=== PATIENT | male | born 1960 | race Asian ===

== ENCOUNTER 2017-09-12 17:16 | Inpatient (IN) | payer MEDICAID, OTHER ==
[~2017-09-12] VITALS: Ht 177.8 cm; Wt 91.2 kg
[2017-09-12] MEDS ORDERED: SODIUM CHLORIDE 0.9% 1,000 ML IV ONE (17:25)
[2017-09-12] MEDS ORDERED: ONDANSETRON 2MG/ML, 2ML IVPush ONE (17:30)
[2017-09-12] MEDS ORDERED: ONDANSETRON 2MG/ML, 2ML ONE (18:10)
[2017-09-12 18:11] LABS: HEMATOCRIT 28.9 % (39.2-51.8); HEMOGLOBIN 9.3 g/dL (13.7-18.0); WHITE BLOOD COUNT 17.9 x10^3/uL (3.4-10)
[2017-09-12 18:23] LABS: BLOOD UREA NITROGEN 36 mg/dL (7-18)
[2017-09-12 18:28] LABS: IS PT STATUS REG ER OR PRE ER? YES
[2017-09-12 18:28] LABS: RAPID INFLUENZA A Negative (Negative); RAPID INFLUENZA B Negative (Negative)
[2017-09-12] MEDS ORDERED: CALC0.25 PO (18:43)
[2017-09-12] MEDS ORDERED: ISOS30TA8 PO (18:43)
[2017-09-12] MEDS ORDERED: ASPI-496 PO (18:43)
[2017-09-12] MEDS ORDERED: FURO-92 PO (18:43)
[2017-09-12] MEDS ORDERED: CARV6.252 PO (18:43)
[2017-09-12] MEDS ORDERED: ATOR40TA PO (18:43)
[2017-09-12] MEDS ORDERED: NITR0.4T28 SL (18:43)
[2017-09-12] MEDS ORDERED: HYDR-3342 PO (18:43)
[2017-09-12] MEDS ORDERED: GABA300C10 PO (18:43)
[2017-09-12] MEDS ORDERED: HUM100VI6 SQ (18:43)
[2017-09-12] MEDS ORDERED: SODIUM CHLORIDE FLUSH 10ML SYR IVF PRN (20:00)
[2017-09-12] MEDS ORDERED: NITROGLYCERIN 0.4 MG BOTTLE (25 TABS) SL PRN (20:30)
[2017-09-12] MEDS ORDERED: hydrALAzine 20 MG/ML, 1ML IVPush PRN (20:30)
[2017-09-12] MEDS ORDERED: FUROSEMIDE 20 MG/2 ML IV SCH (20:30)
[2017-09-12] MEDS ORDERED: ONDANSETRON 2MG/ML, 2ML IVPush PRN (20:30)
[2017-09-12] MEDS ORDERED: DOCUSATE 100 MG CAPSULE PO PRN (20:30)
[2017-09-12] MEDS ORDERED: AZITHROMYCIN 500 MG in SODIUM CHLORIDE 0.9% 250 ML IV SCH (20:30)
[2017-09-12] MEDS ORDERED: HEPARIN 5,000 UNITS/ML, 1ML SQ SCH (20:30)
[2017-09-12] MEDS ORDERED: GUAIFENESIN/DM 200-20MG, 10ML UDC PO PRN (20:30)
[2017-09-12] MEDS ORDERED: CEFTRIAXONE PMX 1GM/50ML 50 ML IV SCH (21:30)
[2017-09-12] MEDS ORDERED: PHARMACY MAY ADJ FOR RENAL FX MC PRN (21:30)
[2017-09-12 22:30] VITALS: BP 120/75
[2017-09-12] MEDS: ATORVASTATIN 40 MG TABLET PO SCH (22:41)
[2017-09-12] MEDS: GABAPENTIN 300 MG CAPSULE PO SCH (22:41)
[2017-09-12] MEDS: CARVEDILOL 6.25 MG TABLET PO SCH (22:41)
[2017-09-13] VITALS (8 sets, daily range): BP systolic 98–157; BP diastolic 58–92
[2017-09-13 00:53] LABS: IS PT STATUS REG ER OR PRE ER? NO
[2017-09-13 06:03] LABS: HEMATOCRIT 24.5 % (39.2-51.8); WHITE BLOOD COUNT 14.9 x10^3/uL (3.4-10)
[2017-09-13 06:13] LABS: BLOOD UREA NITROGEN 35 mg/dL (7-18)
[2017-09-13 06:31] LABS: IS PT STATUS REG ER OR PRE ER? NO
[2017-09-13] MEDS: CALCITRIOL 0.25 MCG CAPSULE PO SCH (09:24)
[2017-09-13] MEDS: CARVEDILOL 6.25 MG TABLET PO SCH ×2 (09:24→20:34)
[2017-09-13] MEDS: GABAPENTIN 300 MG CAPSULE PO SCH ×3 (09:24→20:34)
[2017-09-13] MEDS: ISOSORBIDE MONONITRATE ER 30 MG TABLET PO SCH (09:25)
[2017-09-13] MEDS: ASPIRIN 81 MG TABLET EC PO SCH (09:26)
[2017-09-13] MEDS: INSULIN ASPART 70/30 100U/ML, PEN SQ-INSULIN SCH (10:22)
[2017-09-13] MEDS: ACETAMINOPHEN 325 MG TABLET PO PRN (13:53)
[2017-09-13] MEDS: ATORVASTATIN 40 MG TABLET PO SCH (20:34)
[2017-09-14 01:29] VITALS: BP 118/66
[2017-09-14 04:21] LABS: HEMOGLOBIN 8.2 g/dL (13.7-18.0); WHITE BLOOD COUNT 14.8 x10^3/uL (3.4-10)
[2017-09-14 07:29] VITALS: BP 111/67
[2017-09-14] MEDS: CARVEDILOL 6.25 MG TABLET PO SCH ×2 (08:32→21:16)
[2017-09-14] MEDS: CALCITRIOL 0.25 MCG CAPSULE PO SCH (08:32)
[2017-09-14] MEDS: ISOSORBIDE MONONITRATE ER 30 MG TABLET PO SCH (08:32)
[2017-09-14] MEDS: ASPIRIN 81 MG TABLET EC PO SCH (08:32)
[2017-09-14] MEDS: GABAPENTIN 300 MG CAPSULE PO SCH ×3 (08:32→21:16)
[2017-09-14] MEDS: INSULIN ASPART 70/30 100U/ML, PEN SQ-INSULIN SCH (08:33)
[2017-09-14] MEDS: ACETAMINOPHEN 325 MG TABLET PO PRN ×2 (09:27→22:37)
[2017-09-14] MEDS: INSULIN ASPART 100 UNITS/ML, PEN SQ-INSULIN SCH ×3 (11:53→21:21)
[2017-09-14 13:02] VITALS: BP 117/68
[2017-09-14] MEDS ORDERED: COLCHICINE 0.6 MG TABLET PO ONE (17:30)
[2017-09-14 19:06] VITALS: BP 130/77
[2017-09-14] MEDS: ATORVASTATIN 40 MG TABLET PO SCH (21:16)
[2017-09-14] MEDS: COLCHICINE 0.6 MG TABLET PO PRN (21:16)
[2017-09-14 21:25] VITALS: BP 135/78
[2017-09-14] MEDS ORDERED: PHARMACOKINETIC MONITORING MC PRN (22:00)
[2017-09-14] MEDS ORDERED: VANCOMYCIN PER PHARMACY MC PRN (22:00)
[2017-09-14] MEDS ORDERED: PIPERACILLIN/TAZO/PMX 3.375GM 50 ML IV SCH (22:00)
[2017-09-14] MEDS ORDERED: PHARMACOKINETIC CONSULTATION MC ONE (22:00)
[2017-09-14] MEDS ORDERED: VANCOMYCIN 1,800 MG in SODIUM CHLORIDE 0.9% 250 ML IV ONE (22:30)
[2017-09-14] MEDS: PIPERACILLIN/TAZO 3.375 GM in SODIUM CHLORIDE 0.9% 50 ML IV SCH (23:15)
[2017-09-15 02:22] VITALS: BP 100/57
[2017-09-15] MEDS: PIPERACILLIN/TAZO 3.375 GM in SODIUM CHLORIDE 0.9% 50 ML IV SCH (05:30)
[2017-09-15 05:40] LABS: HEMATOCRIT 23.1 % (39.2-51.8); HEMOGLOBIN 7.7 g/dL (13.7-18.0); WHITE BLOOD COUNT 14.2 x10^3/uL (3.4-10)
[2017-09-15 06:19] LABS: BLOOD UREA NITROGEN 36 mg/dL (7-18)
[2017-09-15 07:29] VITALS: BP 119/84
[2017-09-15] MEDS: INSULIN ASPART 100 UNITS/ML, PEN SQ-INSULIN SCH ×4 (08:44→21:00)
[2017-09-15] MEDS: GABAPENTIN 300 MG CAPSULE PO SCH ×3 (08:45→22:08)
[2017-09-15] MEDS: COLCHICINE 0.6 MG TABLET PO PRN (08:45)
[2017-09-15] MEDS: CALCITRIOL 0.25 MCG CAPSULE PO SCH (08:45)
[2017-09-15] MEDS: ASPIRIN 81 MG TABLET EC PO SCH (08:45)
[2017-09-15] MEDS: INSULIN ASPART 70/30 100U/ML, PEN SQ-INSULIN SCH (08:45)
[2017-09-15] MEDS: ISOSORBIDE MONONITRATE ER 30 MG TABLET PO SCH (08:45)
[2017-09-15] MEDS: CARVEDILOL 6.25 MG TABLET PO SCH ×2 (08:46→22:09)
[2017-09-15] MEDS: ACETAMINOPHEN 325 MG TABLET PO PRN (08:53)
[2017-09-15] MEDS ORDERED: morphine SULFATE 10 MG/ML, 1ML IVPush PRN (10:30)
[2017-09-15] MEDS ORDERED: PHENYLEPHRINE 10 MG/ML ONE (10:33)
[2017-09-15] MEDS ORDERED: FUROSEMIDE 40 MG/4 ML IV ONE (12:30)
[2017-09-15 13:00] VITALS: BP 109/69
[2017-09-15 13:38] VITALS: BP 118/69
[2017-09-15 15:07] LABS: OCCBLD OBC PASS
[2017-09-15] MEDS ORDERED: LIDOCAINE 1%, 20ML ONE (15:59)
[2017-09-15] MEDS ORDERED: LEVOFLOXACIN/PMX 500MG/100ML 100 ML IV SCH (17:00)
[2017-09-15 18:28] VITALS: BP 123/75
[2017-09-15] MEDS ORDERED: MIDAZOLAM 1 MG/ML, 2ML ONE (19:53)
[2017-09-15] MEDS ORDERED: FENTANYL PF 100 MCG/2ML ONE (19:53)
[2017-09-15] MEDS ORDERED: PROPOFOL 10 MG/ML, 20ML ONE ×2 (19:56→19:57)
[2017-09-15] MEDS ORDERED: LIDOCAINE/PF 1%, 30ML ONE (19:57)
[2017-09-15] MEDS ORDERED: SUCCINYLCHOLINE 20 MG/ML, 10ML ONE (19:57)
[2017-09-15] MEDS ORDERED: EPINEPHRINE 1 MG/ML, 1ML ONE (19:58)
[2017-09-15 20:07] LABS: CELLS COUNTED 725; DILUTION 2; WBC SQUARES COUNTED 1
[2017-09-15] MEDS ORDERED: DEXAMETHASONE 4 MG/ML, 1ML ONE (20:21)
[2017-09-15] MEDS ORDERED: ONDANSETRON 2MG/ML, 2ML ONE (20:21)
[2017-09-15] MEDS ORDERED: NEOSPORIN OINT, 15GM ONE (20:22)
[2017-09-15] MEDS ORDERED: OXYcodone 5 MG/5 ML ORAL.SOL UDC PO PRN (20:30)
[2017-09-15] MEDS ORDERED: PROMETHAZINE 25 MG/ML, 1ML IV PRN (20:30)
[2017-09-15] MEDS ORDERED: MEPERIDINE/PF 25MG/0.5ML IVPush PRN (20:30)
[2017-09-15] MEDS ORDERED: LABETALOL 5MG/ML, 20ML IV PRN (20:30)
[2017-09-15] MEDS ORDERED: ONDANSETRON 2MG/ML, 2ML IVPush PRN (20:30)
[2017-09-15] MEDS ORDERED: FENTANYL PF 100 MCG/2ML IV PRN (20:30)
[2017-09-15] MEDS ORDERED: hydrALAzine 20 MG/ML, 1ML IV PRN (20:30)
[2017-09-15] MEDS ORDERED: HYDROmorphone 1 MG/ML, 1ML IV PRN (20:30)
[2017-09-15] MEDS: ATORVASTATIN 40 MG TABLET PO SCH (22:08)
[2017-09-16 03:31] VITALS: BP 127/77
[2017-09-16 05:24] LABS: HEMATOCRIT 27.2 % (39.2-51.8); HEMOGLOBIN 8.8 g/dL (13.7-18.0); WHITE BLOOD COUNT 15.5 x10^3/uL (3.4-10)
[2017-09-16 05:39] LABS: ASPARTATE AMINO TRANSFERASE 21 U/L (15-37); BLOOD UREA NITROGEN 40 mg/dL (7-18); FERRITIN 1169.7 ng/mL (26-388); TOTAL IRON BINDING CAPACITY 131 mcg/dL (250-450)
[2017-09-16] MEDS ORDERED: SODIUM POLYSTYRENE SULFONATE ORAL SUSP PO ONE (06:00)
[2017-09-16] MEDS ORDERED: FUROSEMIDE 40 MG/4 ML IV ONE (07:30)
[2017-09-16 07:45] VITALS: BP 129/78
[2017-09-16] MEDS: INSULIN ASPART 100 UNITS/ML, PEN SQ-INSULIN SCH ×4 (08:22→20:38)
[2017-09-16] MEDS: INSULIN ASPART 70/30 100U/ML, PEN SQ-INSULIN SCH ×2 (08:22→20:39)
[2017-09-16] MEDS: GABAPENTIN 300 MG CAPSULE PO SCH ×3 (08:24→20:39)
[2017-09-16] MEDS: CALCITRIOL 0.25 MCG CAPSULE PO SCH (08:24)
[2017-09-16] MEDS: ASPIRIN 81 MG TABLET EC PO SCH (08:24)
[2017-09-16] MEDS: CARVEDILOL 6.25 MG TABLET PO SCH ×2 (08:24→20:39)
[2017-09-16] MEDS: morphine SULFATE 10 MG/ML, 1ML IVPush PRN (13:00)
[2017-09-16 14:58] VITALS: BP 124/73
[2017-09-16 19:39] VITALS: BP 130/75
[2017-09-16] MEDS: ATORVASTATIN 40 MG TABLET PO SCH (20:39)
[2017-09-17] MEDS: morphine SULFATE 10 MG/ML, 1ML IVPush PRN (00:17)
[2017-09-17 02:00] VITALS: BP 112/69
[2017-09-17 05:28] LABS: HEMATOCRIT 25.2 % (39.2-51.8); HEMOGLOBIN 8.4 g/dL (13.7-18.0); WHITE BLOOD COUNT 15.3 x10^3/uL (3.4-10)
[2017-09-17 05:40] LABS: BLOOD UREA NITROGEN 47 mg/dL (7-18)
[2017-09-17 05:44] LABS: ASPARTATE AMINO TRANSFERASE 16 U/L (15-37)
[2017-09-17 07:40] VITALS: BP 131/78
[2017-09-17] MEDS: GABAPENTIN 300 MG CAPSULE PO SCH ×3 (08:54→20:23)
[2017-09-17] MEDS: CALCITRIOL 0.25 MCG CAPSULE PO SCH (08:55)
[2017-09-17] MEDS: ASPIRIN 81 MG TABLET EC PO SCH (08:55)
[2017-09-17] MEDS: CARVEDILOL 6.25 MG TABLET PO SCH ×2 (08:55→20:23)
[2017-09-17] MEDS: INSULIN ASPART 100 UNITS/ML, PEN SQ-INSULIN SCH ×4 (08:56→20:24)
[2017-09-17] MEDS: INSULIN ASPART 70/30 100U/ML, PEN SQ-INSULIN SCH ×2 (09:10→20:24)
[2017-09-17] MEDS: CHOLECALCIFEROL 1,000 UNIT TABLET PO SCH (11:43)
[2017-09-17 12:40] VITALS: BP 123/72
[2017-09-17 19:16] VITALS: BP 145/88
[2017-09-17] MEDS: LEVOFLOXACIN/PMX 750MG/150ML 150 ML IV SCH (20:23)
[2017-09-17] MEDS: ATORVASTATIN 40 MG TABLET PO SCH (20:23)
[2017-09-18 02:54] VITALS: BP 144/83
[2017-09-18 05:50] LABS: BLOOD UREA NITROGEN 47 mg/dL (7-18)
[2017-09-18 05:55] LABS: ASPARTATE AMINO TRANSFERASE 18 U/L (15-37)
[2017-09-18 07:29] VITALS: BP 132/71
[2017-09-18] MEDS: LACTOBACILLUS 1GM/ PACKET PO SCH ×4 (08:35→20:37)
[2017-09-18] MEDS: INSULIN ASPART 100 UNITS/ML, PEN SQ-INSULIN SCH ×4 (08:36→20:47)
[2017-09-18] MEDS: GABAPENTIN 300 MG CAPSULE PO SCH ×3 (08:36→20:35)
[2017-09-18] MEDS: CALCITRIOL 0.25 MCG CAPSULE PO SCH (08:36)
[2017-09-18] MEDS: ASPIRIN 81 MG TABLET EC PO SCH (08:36)
[2017-09-18] MEDS: CHOLECALCIFEROL 1,000 UNIT TABLET PO SCH (08:36)
[2017-09-18] MEDS: CARVEDILOL 6.25 MG TABLET PO SCH ×2 (08:36→20:35)
[2017-09-18] MEDS: INSULIN ASPART 70/30 100U/ML, PEN SQ-INSULIN SCH ×2 (08:37→20:48)
[2017-09-18] MEDS: ACETAMINOPHEN 325 MG TABLET PO PRN (10:39)
[2017-09-18 12:55] VITALS: BP 137/72
[2017-09-18] MEDS: ATORVASTATIN 40 MG TABLET PO SCH (20:35)
[2017-09-18 20:57] VITALS: BP 148/92
[2017-09-19 03:38] VITALS: BP 170/98
[2017-09-19] MEDS: ACETAMINOPHEN 325 MG TABLET PO PRN ×2 (04:03→12:21)
[2017-09-19] MEDS: LACTOBACILLUS 1GM/ PACKET PO SCH ×4 (05:07→21:00)
[2017-09-19 05:10] VITALS: BP 148/82
[2017-09-19 06:23] LABS: ASPARTATE AMINO TRANSFERASE 24 U/L (15-37); BLOOD UREA NITROGEN 39 mg/dL (7-18)
[2017-09-19] MEDS: INSULIN ASPART 100 UNITS/ML, PEN SQ-INSULIN SCH ×4 (07:00→22:46)
[2017-09-19] MEDS: INSULIN ASPART 70/30 100U/ML, PEN SQ-INSULIN SCH ×2 (09:00→22:46)
[2017-09-19 09:09] VITALS: BP 147/90
[2017-09-19] MEDS: CARVEDILOL 6.25 MG TABLET PO SCH ×2 (10:40→22:21)
[2017-09-19] MEDS: GABAPENTIN 300 MG CAPSULE PO SCH ×3 (10:41→22:21)
[2017-09-19] MEDS: CALCITRIOL 0.25 MCG CAPSULE PO SCH (10:41)
[2017-09-19] MEDS: ASPIRIN 81 MG TABLET EC PO SCH (10:41)
[2017-09-19] MEDS: CHOLECALCIFEROL 1,000 UNIT TABLET PO SCH (10:42)
[2017-09-19] MEDS: TORSEMIDE 20 MG TABLET PO SCH (10:42)
[2017-09-19 14:29] VITALS: BP 124/76
[2017-09-19 20:07] VITALS: BP 151/88
[2017-09-19] MEDS: LEVOFLOXACIN/PMX 750MG/150ML 150 ML IV SCH (22:21)
[2017-09-19] MEDS: ATORVASTATIN 40 MG TABLET PO SCH (22:22)
[2017-09-20 01:49] VITALS: BP 126/79
[2017-09-20 05:10] LABS: HEMATOCRIT 25.8 % (39.2-51.8); HEMOGLOBIN 8.5 g/dL (13.7-18.0); WHITE BLOOD COUNT 16.2 x10^3/uL (3.4-10)
[2017-09-20 05:18] LABS: BLOOD UREA NITROGEN 41 mg/dL (7-18)
[2017-09-20 05:23] LABS: ASPARTATE AMINO TRANSFERASE 16 U/L (15-37)
[2017-09-20] MEDS: LACTOBACILLUS 1GM/ PACKET PO SCH ×2 (06:00→10:45)
[2017-09-20] MEDS: INSULIN ASPART 100 UNITS/ML, PEN SQ-INSULIN SCH ×4 (07:00→21:00)
[2017-09-20 07:45] VITALS: BP 123/75
[2017-09-20] MEDS: INSULIN ASPART 70/30 100U/ML, PEN SQ-INSULIN SCH ×2 (08:44→21:04)
[2017-09-20] MEDS: ACETAMINOPHEN 325 MG TABLET PO PRN (08:44)
[2017-09-20] MEDS: TORSEMIDE 20 MG TABLET PO SCH (08:45)
[2017-09-20] MEDS: CARVEDILOL 6.25 MG TABLET PO SCH ×2 (08:45→21:05)
[2017-09-20] MEDS: CHOLECALCIFEROL 1,000 UNIT TABLET PO SCH (08:46)
[2017-09-20] MEDS: GABAPENTIN 300 MG CAPSULE PO SCH ×3 (08:46→21:05)
[2017-09-20] MEDS: CALCITRIOL 0.25 MCG CAPSULE PO SCH (08:46)
[2017-09-20] MEDS: ASPIRIN 81 MG TABLET EC PO SCH (08:46)
[2017-09-20] MEDS: FEBUXOSTAT 40 MG TABLET PO SCH (10:45)
[2017-09-20 14:11] VITALS: BP 120/77
[2017-09-20 21:01] VITALS: BP 142/88
[2017-09-20] MEDS: ATORVASTATIN 40 MG TABLET PO SCH (21:05)
[2017-09-21 01:01] VITALS: BP 137/82
[2017-09-21] MEDS: ACETAMINOPHEN 325 MG TABLET PO PRN (01:04)
[2017-09-21 05:16] LABS: HEMOGLOBIN 8.6 g/dL (13.7-18.0)
[2017-09-21 05:37] LABS: ASPARTATE AMINO TRANSFERASE 25 U/L (15-37); BLOOD UREA NITROGEN 33 mg/dL (7-18)
[2017-09-21] MEDS ORDERED: MAGNESIUM SULFATE PMX 2GM/50ML 50 ML IV ONE (07:30)
[2017-09-21 07:39] VITALS: BP 154/90
[2017-09-21] MEDS: TORSEMIDE 20 MG TABLET PO SCH (09:09)
[2017-09-21] MEDS: FEBUXOSTAT 40 MG TABLET PO SCH (09:10)
[2017-09-21] MEDS: ASPIRIN 81 MG TABLET EC PO SCH (09:10)
[2017-09-21] MEDS: GABAPENTIN 300 MG CAPSULE PO SCH ×3 (09:10→20:31)
[2017-09-21] MEDS: CHOLECALCIFEROL 1,000 UNIT TABLET PO SCH (09:10)
[2017-09-21] MEDS: CALCITRIOL 0.25 MCG CAPSULE PO SCH (09:10)
[2017-09-21] MEDS: CARVEDILOL 6.25 MG TABLET PO SCH ×2 (09:10→20:31)
[2017-09-21] MEDS: INSULIN ASPART 70/30 100U/ML, PEN SQ-INSULIN SCH ×2 (09:11→20:32)
[2017-09-21] MEDS: INSULIN ASPART 100 UNITS/ML, PEN SQ-INSULIN SCH ×4 (09:11→20:32)
[2017-09-21 13:54] VITALS: BP 124/74
[2017-09-21 15:10] VITALS: BP 125/74
[2017-09-21 18:31] VITALS: BP 143/82
[2017-09-21] MEDS: ATORVASTATIN 40 MG TABLET PO SCH (20:31)
[2017-09-21] MEDS: LEVOFLOXACIN/PMX 750MG/150ML 150 ML IV SCH (21:56)
[2017-09-22 03:03] VITALS: BP 144/81
[2017-09-22 06:04] LABS: BLOOD UREA NITROGEN 32 mg/dL (7-18)
[2017-09-22 06:40] VITALS: BP 132/78
[2017-09-22] MEDS: INSULIN ASPART 100 UNITS/ML, PEN SQ-INSULIN SCH ×4 (07:29→20:17)
[2017-09-22] MEDS: ASPIRIN 81 MG TABLET EC PO SCH (09:29)
[2017-09-22] MEDS: CHOLECALCIFEROL 1,000 UNIT TABLET PO SCH (09:29)
[2017-09-22] MEDS: CALCITRIOL 0.25 MCG CAPSULE PO SCH (09:30)
[2017-09-22] MEDS: GABAPENTIN 300 MG CAPSULE PO SCH ×3 (09:30→20:18)
[2017-09-22] MEDS: CARVEDILOL 6.25 MG TABLET PO SCH ×2 (09:31→20:18)
[2017-09-22] MEDS: FEBUXOSTAT 40 MG TABLET PO SCH (09:31)
[2017-09-22] MEDS: TORSEMIDE 20 MG TABLET PO SCH (09:32)
[2017-09-22] MEDS: INSULIN ASPART 70/30 100U/ML, PEN SQ-INSULIN SCH ×2 (09:36→20:18)
[2017-09-22 12:56] VITALS: BP 127/71
[2017-09-22 20:16] VITALS: BP 130/79
[2017-09-22] MEDS: ATORVASTATIN 40 MG TABLET PO SCH (20:18)
[2017-09-23 02:52] VITALS: BP 121/72
[2017-09-23] MEDS ORDERED: FEBU40TA PO (06:37)
[2017-09-23] MEDS ORDERED: TORS20TA PO (06:37)
[2017-09-23 06:49] VITALS: BP 122/77
[2017-09-23] MEDS: INSULIN ASPART 100 UNITS/ML, PEN SQ-INSULIN SCH ×2 (07:00→11:00)
[2017-09-23 07:54] LABS: BLOOD UREA NITROGEN 31 mg/dL (7-18)
[2017-09-23] MEDS: FEBUXOSTAT 40 MG TABLET PO SCH (08:58)
[2017-09-23] MEDS: ASPIRIN 81 MG TABLET EC PO SCH (08:59)
[2017-09-23] MEDS: CHOLECALCIFEROL 1,000 UNIT TABLET PO SCH (08:59)
[2017-09-23] MEDS: GABAPENTIN 300 MG CAPSULE PO SCH (08:59)
[2017-09-23] MEDS: TORSEMIDE 20 MG TABLET PO SCH (08:59)
[2017-09-23] MEDS: CALCITRIOL 0.25 MCG CAPSULE PO SCH (08:59)
[2017-09-23] MEDS: INSULIN ASPART 70/30 100U/ML, PEN SQ-INSULIN SCH (09:00)
[2017-09-23] MEDS: CARVEDILOL 6.25 MG TABLET PO SCH (09:00)
[2017-09-23] MEDS: ACETAMINOPHEN 325 MG TABLET PO PRN (09:07)
[2017-09-23] MEDS ORDERED: LIDOCAINE 1%, 20ML ONE ×2 (11:38→14:05)
[2017-09-23 13:23] VITALS: BP 109/67
[2017-09-23] MEDS ORDERED: ERGOCALCIFEROL 50,000 UNIT CAPSULE PO SCH (14:30)
[2017-09-23 14:42] LABS: PTH INTACT INTERPRETATION ** Comment **
[2017-09-23 15:09] LABS: PARATHYROID HORMONE INTACT 64.8 pg/mL (14-72)
[2017-09-23 15:16] LABS: CYTOLOGY BODY FLUID RECD INTO PATHOLOGY; CYTOLOGY BODY FLUID SOURCE PLEURAL FLUID
== END 2017-09-23 16:00 | disposition home or self-care (01) | DRG 570 ==
LOC: ED 18:42 → EDIP 19:40 → 5SO 20:51 → 4NOR 09-21 14:31 → DCLOUNGE 09-23 15:50
PROVIDERS: ADMIT Family Medicine; ATTEND Hospitalist
PROC: 0JB00ZZ Excision of Scalp Subcutaneous Tissue and Fascia, Open Approach (ICD-10-PCS; 2017-09-15)
PROC: 0S9C3ZZ Drainage of Right Knee Joint, Percutaneous Approach (ICD-10-PCS; 2017-09-15)
PROC: BW1C1ZZ Fluoroscopy of Lower Extremity using Low Osmolar Contrast (ICD-10-PCS; principal; 2017-09-15 18:00)
PROC: 0W9B30Z Drainage of Left Pleural Cavity with Drainage Device, Percutaneous Approach (ICD-10-PCS; 2017-09-23)
DX: L02.811 Cutaneous abscess of head [any part, except face] (principal); E43 Unspecified severe protein-calorie malnutrition; I50.43 Acute on chronic combined systolic (congestive) and diastolic (congestive) heart failure; J18.9 Pneumonia, unspecified organism; E11.21 Type 2 diabetes mellitus with diabetic nephropathy; E11.40 Type 2 diabetes mellitus with diabetic neuropathy, unspecified; I13.0 Hypertensive heart and chronic kidney disease with heart failure and stage 1 through stage 4 chronic kidney disease, or unspecified chronic kidney disease; N17.9 Acute kidney failure, unspecified; N18.4 Chronic kidney disease, stage 4 (severe); E86.9 Volume depletion, unspecified; M10.9 Gout, unspecified; D63.8 Anemia in other chronic diseases classified elsewhere; E11.22 Type 2 diabetes mellitus with diabetic chronic kidney disease; E11.65 Type 2 diabetes mellitus with hyperglycemia; Z68.28 Body mass index [BMI] 28.0-28.9, adult; E87.5 Hyperkalemia; I25.10 Atherosclerotic heart disease of native coronary artery without angina pectoris; I49.3 Ventricular premature depolarization; J20.9 Acute bronchitis, unspecified; J45.909 Unspecified asthma, uncomplicated; L02.92 Furuncle, unspecified; L72.3 Sebaceous cyst; Z79.4 Long term (current) use of insulin; Z82.49 Family history of ischemic heart disease and other diseases of the circulatory system; I25.2 Old myocardial infarction; Z88.8 Allergy status to other drugs, medicaments and biological substances; Z95.5 Presence of coronary angioplasty implant and graft; Z83.3 Family history of diabetes mellitus; Z79.899 Other long term (current) drug therapy
CPT/HCPCS: 32555; 36415; 71010; 71020; 71250; 74230; 76770; 77002; 80048; 80053; 80069; 80202; 81001; 82040; 82272; 82306; 82310; 82728; 82945; 82962; 83540; 83550; 83605; 83615; 83735; 83880; 83970; 84100; 84145; 84155; 84157; 84484; 84550; 85025; 85610; 85651; 85730; 86140; 87040; 87070; 87205; 87324; 87400; 88112; 88305; 88307; 89051; 89060; 93005; 93306; 96361; 96374; J0171; J0456; J0696; J1100; J1644; J1815; J1940; J1956; J2250; J2405; J2543; J2704; J3010; J3370; J3490; J0330; J2270; J2370; J3475; J7030; J7050

== ENCOUNTER 2017-10-08 07:20 | Inpatient (IN) | payer MEDICAID, OTHER ==
[~2017-10-08] VITALS: Ht 177.8 cm; Wt 88.8 kg
[~2017-10-08 07:20] MED LIST: ASPI-496 PO; ATOR40TA PO; CALC0.25 PO; CARV6.252 PO; FEBU40TA PO; FURO-92 PO; GABA300C10 PO; HUM100VI6 SQ; HYDR-3342 PO; ISOS30TA8 PO; NITR0.4T28 SL; TORS20TA PO
[2017-10-08] MEDS ORDERED: LACTATED RINGERS 1,000 ML IV SCH (07:58)
[2017-10-08] MEDS ORDERED: LIDOCAINE 1%, 2ML SQ PRN (08:00)
[2017-10-08 08:13] VITALS: BP 150/94
[2017-10-08] MEDS ORDERED: SODIUM CHLORIDE 0.9% 1,000 ML IV SCH (08:24)
[2017-10-08] MEDS ORDERED: INSU100V13 SQ-INSULIN (08:26)
[2017-10-08 08:34] LABS: ALBUMIN 1.8 g/dL (3.4-5.0); ANION GAP 8 mmol/L (5-15); CALCIUM 8.4 mg/dL (8.5-10.1); CHLORIDE 108 mmol/L (98-107)
[2017-10-08 08:37] LABS: ALANINE AMINOTRANSFERASE 28 U/L (12-78); ALKALINE PHOSPHATASE 167 U/L (45-117); BILIRUBIN,TOTAL 1.2 mg/dL (0.2-1.0); CREATININE 2.85 mg/dL (0.7-1.3)
[2017-10-08] MEDS ORDERED: KETAMINE 10 MG/ML, 20ML ONE (08:41)
[2017-10-08 08:49] LABS: BASOPHILS # (AUTO) 0.09 x10^3/uL (0-0.1); BASOPHILS % (AUTO) 0 % (0-1); EOSINOPHILS # (AUTO) 0.21 x10^3/uL (0-0.4); EOSINOPHILS % (AUTO) 1 % (1-7); LYMPHOCYTES # (AUTO) 1.42 x10^3/uL (1-3.4); LYMPHOCYTES % (AUTO) 7 % (22-44); MD SCAN; MEAN CORPUSCULAR HEMOGLOBIN 27.7 pg (27.5-34.5); MEAN CORPUSCULAR HGB CONC 32.6 g/dL (33.2-36.2); MEAN CORPUSCULAR VOLUME 84.8 fL (81-97); MEAN PLATELET VOLUME 8.8 fL (7.4-10.4); MONOCYTES # (AUTO) 1.49 x10^3/uL (0.2-0.8); MONOCYTES % (AUTO) 7 % (2-9); NEUTROPHILS # (AUTO) 18.18 x10^3/uL (1.8-6.8); NEUTROPHILS % (AUTO) 85 % (42-75); PLATELET COUNT 363 x10^3/uL (130-400); RED BLOOD COUNT 3.48 x10^6/uL (4.38-5.82); RED CELL DISTRIBUTION WIDTH 19.2 % (9.4-14.8)
[2017-10-08 08:58] LABS: INTERNATIONAL NORMALIZED RATIO 1.27 (0.93-1.1)
[2017-10-08] MEDS ORDERED: REMIFENTANIL 2 MG ONE (09:17)
[2017-10-08] MEDS ORDERED: FENTANYL PF 250 MCG/5ML ONE ×2 (09:20→09:38)
[2017-10-08] MEDS ORDERED: ROCURONIUM 10 MG/ML,10ML ONE (09:29)
[2017-10-08] MEDS ORDERED: GLYCOPYRROLATE 0.2MG/1ML, 5ML ONE (09:29)
[2017-10-08] MEDS ORDERED: PROPOFOL 10 MG/ML, 50ML ONE (09:29)
[2017-10-08] MEDS ORDERED: NEOSTIGMINE 1 MG/ML, 10ML ONE (09:29)
[2017-10-08] MEDS ORDERED: PHENYLEPHRINE 10 MG/ML ONE (09:29)
[2017-10-08] MEDS ORDERED: PROPOFOL 10 MG/ML, 20ML ONE (09:29)
[2017-10-08] MEDS ORDERED: FENTANYL PF 100 MCG/2ML ONE (10:34)
[2017-10-08] MEDS ORDERED: HYDROmorphone 1 MG/ML, 1ML IV PRN (12:00)
[2017-10-08] MEDS ORDERED: FENTANYL PF 100 MCG/2ML IV PRN (12:00)
[2017-10-08] MEDS ORDERED: ONDANSETRON 2MG/ML, 2ML IVPush PRN (12:00)
[2017-10-08] MEDS ORDERED: OXYcodone 5 MG/5 ML ORAL.SOL UDC PO PRN (12:00)
[2017-10-08] MEDS ORDERED: MEPERIDINE/PF 25MG/0.5ML IVPush PRN (12:00)
[2017-10-08] MEDS ORDERED: AMIODARONE 50 MG/ML, 3ML ONE (13:00)
[2017-10-08] MEDS ORDERED: LIDOCAINE 2% 100MG/5ML SYRINGE ONE (13:00)
[2017-10-08] MEDS ORDERED: ADENOSINE 6 MG/2 ML ONE (13:00)
[2017-10-08] MEDS ORDERED: SODIUM BICARB 8.4%, 50ML SYRINGE ONE (13:00)
[2017-10-08] MEDS ORDERED: EPINEPHRINE SYRINGE 0.1 MG/ML, 10ML ONE (13:00)
[2017-10-08] MEDS ORDERED: NOREPINEPHRINE 4 MG in SODIUM CHLORIDE 0.9% 246 ML IV PRN ×2 (13:30→13:33)
[2017-10-08] MEDS ORDERED: LIDOCAINE-MPF 1%, 2ML ENDO PRN (14:00)
[2017-10-08] MEDS ORDERED: FENTANYL PF 100 MCG/2ML IVPush PRN (14:00)
[2017-10-08] MEDS ORDERED: PHARMACY MAY ADJ FOR RENAL FX MC SCH (14:00)
[2017-10-08] MEDS ORDERED: INSULIN REGULAR 100 UNITS/ML, 3ML VIAL SQ-INSULIN SCH (16:00)
[2017-10-08] MEDS: D5%-0.9% NACL 1,000 ML IV SCH (16:05)
[2017-10-08] MEDS: ATORVASTATIN 40 MG TABLET PO SCH (21:48)
[2017-10-08] MEDS: INSULIN REGULAR 100 UNITS/ML, 3ML VIAL SQ-INSULIN SCH (23:42)
[2017-10-09] MEDS: D5%-0.9% NACL 1,000 ML IV SCH ×2 (03:20→17:50)
[2017-10-09] MEDS: INSULIN REGULAR 100 UNITS/ML, 3ML VIAL SQ-INSULIN SCH ×4 (03:20→23:18)
[2017-10-09 03:40] LABS: MEAN CORPUSCULAR HGB CONC 32.6 g/dL (33.2-36.2); MEAN PLATELET VOLUME 9.1 fL (7.4-10.4); PLATELET COUNT 318 x10^3/uL (130-400); RED BLOOD COUNT 3.09 x10^6/uL (4.38-5.82); RED CELL DISTRIBUTION WIDTH 18.8 % (9.4-14.8)
[2017-10-09 03:47] LABS: ANION GAP 10 mmol/L (5-15); CALCIUM 7.5 mg/dL (8.5-10.1); CHLORIDE 112 mmol/L (98-107); CREATININE 3.19 mg/dL (0.7-1.3)
[2017-10-09 04:00] VITALS: BP 119/65
[2017-10-09] MEDS: PROPOFOL 100 ML IV PRN ×3 (04:13→22:23)
[2017-10-09 04:15] LABS: BASOPHILS # (AUTO) 0.04 x10^3/uL (0-0.1); BASOPHILS % (AUTO) 0 % (0-1); EOSINOPHILS # (AUTO) 0.02 x10^3/uL (0-0.4); EOSINOPHILS % (AUTO) 0 % (1-7); LYMPHOCYTES # (AUTO) 1.27 x10^3/uL (1-3.4); LYMPHOCYTES % (AUTO) 4 % (22-44); MD SCAN; MONOCYTES # (AUTO) 1.09 x10^3/uL (0.2-0.8); MONOCYTES % (AUTO) 4 % (2-9); NEUTROPHILS # (AUTO) 28.63 x10^3/uL (1.8-6.8); NEUTROPHILS % (AUTO) 92 % (42-75)
[2017-10-09] MEDS ORDERED: INSULIN ASPART 70/30, VIAL SQ-INSULIN SCH ×2 (08:00)
[2017-10-09] MEDS ORDERED: LIDOCAINE 1%, 10ML ONE (08:06)
[2017-10-09 09:37] LABS: TROPONIN I 0.345 ng/mL (0.000-0.045)
[2017-10-09] MEDS: PANTOPRAZOLE 40 MG IV IVPush SCH (10:48)
[2017-10-09] MEDS: AMPICILLIN/SULBACTAM 3 GM in SODIUM CHLORIDE 0.9% 100 ML IV SCH ×2 (10:48→22:08)
[2017-10-09] MEDS: ASPIRIN 81 MG TABLET CHEW PO SCH (10:49)
[2017-10-09] MEDS: CALCITRIOL 0.25 MCG CAPSULE PO SCH (10:49)
[2017-10-09] MEDS: INSULIN DETEMIR 100 UNITS/ML, PEN SQ-INSULIN SCH (12:48)
[2017-10-09] MEDS: ATORVASTATIN 40 MG TABLET PO SCH (20:50)
[2017-10-10] MEDS: INSULIN DETEMIR 100 UNITS/ML, PEN SQ-INSULIN SCH ×2 (00:47→11:05)
[2017-10-10 05:00] VITALS: BP 107/64
[2017-10-10 05:09] LABS: MEAN CORPUSCULAR HEMOGLOBIN 28.1 pg (27.5-34.5); MEAN CORPUSCULAR HGB CONC 32.6 g/dL (33.2-36.2); MEAN CORPUSCULAR VOLUME 86.4 fL (81-97); MEAN PLATELET VOLUME 9.3 fL (7.4-10.4); PLATELET COUNT 327 x10^3/uL (130-400); RED BLOOD COUNT 3.32 x10^6/uL (4.38-5.82); RED CELL DISTRIBUTION WIDTH 19.8 % (9.4-14.8)
[2017-10-10 05:13] LABS: ANION GAP 9 mmol/L (5-15); CHLORIDE 113 mmol/L (98-107); CREATININE 3.29 mg/dL (0.7-1.3)
[2017-10-10] MEDS: INSULIN REGULAR 100 UNITS/ML, 3ML VIAL SQ-INSULIN SCH ×4 (05:22→21:08)
[2017-10-10 05:43] LABS: BASOPHILS # (AUTO) 0.06 x10^3/uL (0-0.1); BASOPHILS % (AUTO) 0 % (0-1); EOSINOPHILS # (AUTO) 0.25 x10^3/uL (0-0.4); EOSINOPHILS % (AUTO) 1 % (1-7); LYMPHOCYTES # (AUTO) 1.21 x10^3/uL (1-3.4); LYMPHOCYTES % (AUTO) 6 % (22-44); MD SCAN; MONOCYTES # (AUTO) 0.95 x10^3/uL (0.2-0.8); MONOCYTES % (AUTO) 4 % (2-9); NEUTROPHILS # (AUTO) 19.34 x10^3/uL (1.8-6.8); NEUTROPHILS % (AUTO) 89 % (42-75)
[2017-10-10] MEDS: PROPOFOL 100 ML IV PRN (05:50)
[2017-10-10] MEDS: D5%-0.9% NACL 1,000 ML IV SCH (08:30)
[2017-10-10] MEDS: PANTOPRAZOLE 40 MG IV IVPush SCH (10:42)
[2017-10-10] MEDS: ASPIRIN 81 MG TABLET CHEW PO SCH (10:42)
[2017-10-10] MEDS: CALCITRIOL 0.25 MCG CAPSULE PO SCH (10:42)
[2017-10-10] MEDS: AMPICILLIN/SULBACTAM 3 GM in SODIUM CHLORIDE 0.9% 100 ML IV SCH ×2 (10:43→22:48)
[2017-10-10] MEDS: D5%-0.45% NACL 1,000 ML IV SCH ×2 (10:51→21:08)
[2017-10-10] MEDS: ACETAMINOPHEN 325 MG TABLET PO PRN (15:08)
[2017-10-10 16:52] LABS: TROPONIN I 0.151 ng/mL (0.000-0.045)
[2017-10-10] MEDS: ATORVASTATIN 40 MG TABLET PO SCH (21:08)
[2017-10-11 04:36] VITALS: BP 129/71
[2017-10-11 04:53] LABS: MEAN CORPUSCULAR HEMOGLOBIN 27.6 pg (27.5-34.5); MEAN CORPUSCULAR HGB CONC 32.4 g/dL (33.2-36.2); MEAN CORPUSCULAR VOLUME 85.1 fL (81-97); MEAN PLATELET VOLUME 9.1 fL (7.4-10.4); PLATELET COUNT 283 x10^3/uL (130-400); RED BLOOD COUNT 3.03 x10^6/uL (4.38-5.82); RED CELL DISTRIBUTION WIDTH 18.9 % (9.4-14.8)
[2017-10-11 05:10] LABS: ANION GAP 7 mmol/L (5-15); CHLORIDE 113 mmol/L (98-107)
[2017-10-11 05:11] LABS: CALCIUM 7.7 mg/dL (8.5-10.1); CREATININE 3.14 mg/dL (0.7-1.3)
[2017-10-11 06:22] LABS: BASOPHILS # (AUTO) 0.06 x10^3/uL (0-0.1); BASOPHILS % (AUTO) 0 % (0-1); EOSINOPHILS % (AUTO) 2 % (1-7); LYMPHOCYTES # (AUTO) 1.07 x10^3/uL (1-3.4); LYMPHOCYTES % (AUTO) 6 % (22-44); MONOCYTES # (AUTO) 1.32 x10^3/uL (0.2-0.8); MONOCYTES % (AUTO) 7 % (2-9); NEUTROPHILS # (AUTO) 15.87 x10^3/uL (1.8-6.8); NEUTROPHILS % (AUTO) 85 % (42-75)
[2017-10-11 06:29] LABS: MD SCAN
[2017-10-11] MEDS: D5%-0.45% NACL 1,000 ML IV SCH (07:30)
[2017-10-11] MEDS: ASPIRIN 81 MG TABLET CHEW PO SCH (08:38)
[2017-10-11] MEDS: CALCITRIOL 0.25 MCG CAPSULE PO SCH (08:39)
[2017-10-11] MEDS: PANTOPRAZOLE 40 MG IV IVPush SCH (08:39)
[2017-10-11] MEDS: INSULIN REGULAR 100 UNITS/ML, 3ML VIAL SQ-INSULIN SCH ×4 (08:39→20:57)
[2017-10-11] MEDS: INSULIN DETEMIR 100 UNITS/ML, PEN SQ-INSULIN SCH ×2 (08:40→20:58)
[2017-10-11] MEDS ORDERED: HEPARIN 5,000 UNITS/ML, 1ML ONE (10:44)
[2017-10-11] MEDS: HEPARIN 5,000 UNITS/ML, 1ML SQ SCH ×2 (10:45→20:57)
[2017-10-11] MEDS: AMPICILLIN/SULBACTAM 3 GM in SODIUM CHLORIDE 0.9% 100 ML IV SCH ×2 (10:45→23:02)
[2017-10-11 20:56] VITALS: BP 135/80
[2017-10-11] MEDS: ATORVASTATIN 40 MG TABLET PO SCH (20:57)
[2017-10-12 02:58] VITALS: BP 105/68
[2017-10-12] MEDS: HEPARIN 5,000 UNITS/ML, 1ML SQ SCH ×3 (02:59→18:30)
[2017-10-12 05:36] LABS: MEAN CORPUSCULAR HEMOGLOBIN 28.2 pg (27.5-34.5); MEAN CORPUSCULAR HGB CONC 32.7 g/dL (33.2-36.2); MEAN PLATELET VOLUME 8.9 fL (7.4-10.4); PLATELET COUNT 300 x10^3/uL (130-400); RED BLOOD COUNT 3.04 x10^6/uL (4.38-5.82); RED CELL DISTRIBUTION WIDTH 18.9 % (9.4-14.8)
[2017-10-12 05:41] LABS: ANION GAP 9 mmol/L (5-15); CALCIUM 7.7 mg/dL (8.5-10.1); CHLORIDE 115 mmol/L (98-107)
[2017-10-12 06:30] LABS: MD YES
[2017-10-12 06:32] LABS: BAND#(MANUAL) 0.34 x10^3/uL; BANDS%(MANUAL) 2 % (0-7); BASOS#(MANUAL) 0.17 x10^3/uL (0-0.1); BASOS% (MANUAL) 1 % (0-1); LYMPH#(MANUAL) 0.67 x10^3/uL (1-3.4); LYMPHS% (MANUAL) 4 % (22-44); MONOS#(MANUAL) 0.84 x10^3/uL (0.3-2.7); MONOS% (MANUAL) 5 % (2-9); REACTIVE LYMPHS # (MANUAL) 0.17 x10^3/uL (0-0); REACTIVE LYMPHS % (MANUAL) 1 % (0-0); SEG#(MANUAL) 14.62 x10^3/uL (1.8-6.8); SEGS% (MANUAL) 87 % (42-75)
[2017-10-12 06:33] LABS: ANISOCYTOSIS 1+; OVALOCYTES 1+
[2017-10-12 06:34] LABS: <PLATELET ESTIMATE> ADEQUATE; <PLT MORPHOLOGY> NORMAL PLT MORPH
[2017-10-12 07:59] VITALS: BP 156/92
[2017-10-12] MEDS: INSULIN REGULAR 100 UNITS/ML, 3ML VIAL SQ-INSULIN SCH ×4 (08:30→20:55)
[2017-10-12 09:33] LABS: HCT (SEDRATE) 26.2 % (39.2-51.8)
[2017-10-12] MEDS: PANTOPRAZOLE 40 MG IV IVPush SCH (09:53)
[2017-10-12] MEDS: CALCITRIOL 0.25 MCG CAPSULE PO SCH (09:54)
[2017-10-12] MEDS: INSULIN DETEMIR 100 UNITS/ML, PEN SQ-INSULIN SCH ×2 (09:54→20:54)
[2017-10-12] MEDS: CARVEDILOL 6.25 MG TABLET PO SCH ×2 (09:54→18:31)
[2017-10-12] MEDS: ASPIRIN 81 MG TABLET CHEW PO SCH (09:54)
[2017-10-12] MEDS: AMPICILLIN/SULBACTAM 3 GM in SODIUM CHLORIDE 0.9% 100 ML IV SCH ×2 (11:07→23:12)
[2017-10-12 13:11] VITALS: BP 127/79
[2017-10-12] MEDS: ACETAMINOPHEN 325 MG TABLET PO PRN (18:33)
[2017-10-12 20:45] VITALS: BP 118/73
[2017-10-12] MEDS: ATORVASTATIN 40 MG TABLET PO SCH (20:54)
[2017-10-13 01:05] VITALS: BP 123/80
[2017-10-13] MEDS: HEPARIN 5,000 UNITS/ML, 1ML SQ SCH ×2 (03:00→12:17)
[2017-10-13 05:33] LABS: MEAN CORPUSCULAR HEMOGLOBIN 28.1 pg (27.5-34.5); MEAN CORPUSCULAR HGB CONC 32.6 g/dL (33.2-36.2); MEAN CORPUSCULAR VOLUME 86.3 fL (81-97); MEAN PLATELET VOLUME 8.8 fL (7.4-10.4); PLATELET COUNT 275 x10^3/uL (130-400); RED BLOOD COUNT 3.11 x10^6/uL (4.38-5.82); RED CELL DISTRIBUTION WIDTH 18.5 % (9.4-14.8)
[2017-10-13 05:42] LABS: CHLORIDE 114 mmol/L (98-107)
[2017-10-13 05:51] LABS: ANION GAP 8 mmol/L (5-15); CALCIUM 8.3 mg/dL (8.5-10.1); CREATININE 3.07 mg/dL (0.7-1.3)
[2017-10-13] MEDS: CARVEDILOL 6.25 MG TABLET PO SCH (06:00)
[2017-10-13 06:11] LABS: BASOPHILS # (AUTO) 0.04 x10^3/uL (0-0.1); BASOPHILS % (AUTO) 0 % (0-1); EOSINOPHILS # (AUTO) 0.32 x10^3/uL (0-0.4); EOSINOPHILS % (AUTO) 2 % (1-7); LYMPHOCYTES # (AUTO) 1.23 x10^3/uL (1-3.4); LYMPHOCYTES % (AUTO) 7 % (22-44); MD SCAN; MONOCYTES # (AUTO) 1.35 x10^3/uL (0.2-0.8); MONOCYTES % (AUTO) 8 % (2-9); NEUTROPHILS # (AUTO) 14.16 x10^3/uL (1.8-6.8); NEUTROPHILS % (AUTO) 83 % (42-75)
[2017-10-13 06:30] VITALS: BP 125/74
[2017-10-13] MEDS: INSULIN REGULAR 100 UNITS/ML, 3ML VIAL SQ-INSULIN SCH ×2 (07:47→11:38)
[2017-10-13] MEDS: INSULIN DETEMIR 100 UNITS/ML, PEN SQ-INSULIN SCH (08:28)
[2017-10-13] MEDS: PANTOPRAZOLE 40 MG IV IVPush SCH (08:28)
[2017-10-13] MEDS: CALCITRIOL 0.25 MCG CAPSULE PO SCH (08:28)
[2017-10-13] MEDS: ASPIRIN 81 MG TABLET CHEW PO SCH (08:28)
[2017-10-13] MEDS ORDERED: ISOSORBIDE MONONITRATE ER 30 MG TABLET PO SCH (09:30)
[2017-10-13] MEDS ORDERED: AMOX1TAB64 PO (10:18)
[2017-10-13] MEDS ORDERED: INSU100V13 SQ-INSULIN (10:18)
[2017-10-13] MEDS: AMPICILLIN/SULBACTAM 3 GM in SODIUM CHLORIDE 0.9% 100 ML IV SCH (12:17)
[2017-10-13 14:01] VITALS: BP 144/79
== END 2017-10-13 16:05 | disposition home health service (06) | DRG 166 ==
LOC: OUT 07:20 → ORIP 13:07 → CCU 14:00 → 5SO 10-11 18:10
PROVIDERS: ADMIT Internal Medicine Critical Care Medicine; ATTEND Internal Medicine Critical Care Medicine
PROC: 0BBG8ZX Excision of Left Upper Lung Lobe, Via Natural or Artificial Opening Endoscopic, Diagnostic (ICD-10-PCS; 2017-10-08)
PROC: 5A1945Z Respiratory Ventilation, 24-96 Consecutive Hours (ICD-10-PCS; 2017-10-08)
PROC: 0BH17EZ Insertion of Endotracheal Airway into Trachea, Via Natural or Artificial Opening (ICD-10-PCS; 2017-10-08)
PROC: 0W9B3ZZ Drainage of Left Pleural Cavity, Percutaneous Approach (ICD-10-PCS; principal; 2017-10-09)
DX: J96.01 Acute respiratory failure with hypoxia (principal); E43 Unspecified severe protein-calorie malnutrition; R57.9 Shock, unspecified; I46.9 Cardiac arrest, cause unspecified; J69.0 Pneumonitis due to inhalation of food and vomit; G93.41 Metabolic encephalopathy; J91.0 Malignant pleural effusion; Z99.11 Dependence on respirator [ventilator] status; N17.9 Acute kidney failure, unspecified; N18.4 Chronic kidney disease, stage 4 (severe); I47.1 Supraventricular tachycardia; I13.0 Hypertensive heart and chronic kidney disease with heart failure and stage 1 through stage 4 chronic kidney disease, or unspecified chronic kidney disease; I50.40 Unspecified combined systolic (congestive) and diastolic (congestive) heart failure; D63.8 Anemia in other chronic diseases classified elsewhere; E11.21 Type 2 diabetes mellitus with diabetic nephropathy; E11.22 Type 2 diabetes mellitus with diabetic chronic kidney disease; E11.42 Type 2 diabetes mellitus with diabetic polyneuropathy; E78.5 Hyperlipidemia, unspecified; E83.51 Hypocalcemia; I25.10 Atherosclerotic heart disease of native coronary artery without angina pectoris; I25.5 Ischemic cardiomyopathy; J44.9 Chronic obstructive pulmonary disease, unspecified; M10.9 Gout, unspecified; Z51.5 Encounter for palliative care; Z82.49 Family history of ischemic heart disease and other diseases of the circulatory system; Z83.3 Family history of diabetes mellitus; Z87.891 Personal history of nicotine dependence; Z95.5 Presence of coronary angioplasty implant and graft; Z95.810 Presence of automatic (implantable) cardiac defibrillator
CPT/HCPCS: 32555; 36415; 36600; 70450; 71010; 71046; 76000; 80048; 80053; 82803; 82962; 83615; 83735; 84100; 84157; 84478; 84484; 85025; 85610; 85651; 85730; 86141; 87070; 87081; 87205; 88112; 88172; 88173; 88305; 93005; 93306; 94002; 94003; 94150; J0153; J0295; J1644; J1815; J2704; J2710; J3010; J3490; J7042; C9113; J0282; J2370

== ENCOUNTER 2017-10-26 01:15 | Inpatient (IN) | payer MEDICAID ==
[~2017-10-26] VITALS: Ht 177.8 cm; Wt 96.1 kg
[~2017-10-26 01:15] MED LIST changes: +AMOX1TAB64 PO; +INSU100V13 SQ-INSULIN
[2017-10-26 03:26] LABS: BASOPHILS # (AUTO) 0.04 x10^3/uL (0-0.1); BASOPHILS % (AUTO) 0 % (0-1); EOSINOPHILS # (AUTO) 0.22 x10^3/uL (0-0.4); EOSINOPHILS % (AUTO) 1 % (1-7); LYMPHOCYTES # (AUTO) 1.09 x10^3/uL (1-3.4); LYMPHOCYTES % (AUTO) 6 % (22-44); MD NO; MEAN CORPUSCULAR HEMOGLOBIN 31.5 pg (27.5-34.5); MEAN CORPUSCULAR HGB CONC 34.5 g/dL (33.2-36.2); MEAN CORPUSCULAR VOLUME 91.3 fL (81-97); MEAN PLATELET VOLUME 9.4 fL (7.4-10.4); MONOCYTES # (AUTO) 1.16 x10^3/uL (0.2-0.8); MONOCYTES % (AUTO) 7 % (2-9); NEUTROPHILS # (AUTO) 14.53 x10^3/uL (1.8-6.8); NEUTROPHILS % (AUTO) 85 % (42-75); PLATELET COUNT 366 x10^3/uL (130-400); RED BLOOD COUNT 3.19 x10^6/uL (4.38-5.82); RED CELL DISTRIBUTION WIDTH 21.8 % (9.4-14.8)
[2017-10-26 03:30] LABS: RAPID INFLUENZA A Negative (Negative); RAPID INFLUENZA B Negative (Negative)
[2017-10-26 03:36] LABS: INTERNATIONAL NORMALIZED RATIO 1.17 (0.93-1.1); PROTHROMBIN TIME 12.1 Seconds (9.6-11.5)
[2017-10-26 03:39] LABS: ALANINE AMINOTRANSFERASE 16 U/L (12-78); ALBUMIN 1.7 g/dL (3.4-5.0); ANION GAP 7 mmol/L (5-15); CALCIUM 8.4 mg/dL (8.5-10.1); CHLORIDE 112 mmol/L (98-107); CREATININE 2.78 mg/dL (0.7-1.3)
[2017-10-26 03:42] LABS: TROPONIN I 0.101 ng/mL (0.000-0.045)
[2017-10-26 03:55] LABS: ALKALINE PHOSPHATASE 168 U/L (45-117); BILIRUBIN,TOTAL 1.1 mg/dL (0.2-1.0); TOTAL PROTEIN 7.8 g/dL (6.4-8.2)
[2017-10-26 05:14] LABS: MICROSCOPIC INDICATED
[2017-10-26 05:17] LABS: CULTURE INDICATED? NO
[2017-10-26] MEDS ORDERED: PIPERACILLIN/TAZO/PMX 3.375GM 50 ML ONE (05:24)
[2017-10-26] MEDS ORDERED: VANCOMYCIN 1,800 MG in SODIUM CHLORIDE 0.9% 250 ML IV ONE (05:30)
[2017-10-26] MEDS ORDERED: PIPERACILLIN/TAZO/PMX 3.375GM 50 ML IVPB ONE (05:30)
[2017-10-26] MEDS ORDERED: VANCOMYCIN PER PHARMACY IV ONE (05:30)
[2017-10-26] MEDS ORDERED: SODIUM CHLORIDE 0.9% 1,000 ML IV ONE (06:30)
[2017-10-26] MEDS: SODIUM CHLORIDE 0.9% 1,000 ML IV SCH ×2 (06:30→07:30)
[2017-10-26] MEDS ORDERED: VANCOMYCIN PER PHARMACY MC PRN (08:30)
[2017-10-26] MEDS ORDERED: PIPERACILLIN/TAZO/PMX 3.375GM 50 ML IV SCH (08:30)
[2017-10-26] MEDS ORDERED: PHARMACY INSTRUCTION MC SCH (08:30)
[2017-10-26] MEDS ORDERED: PHARMACOKINETIC CONSULTATION MC ONE (09:00)
[2017-10-26] MEDS ORDERED: PHARMACOKINETIC MONITORING MC PRN (09:00)
[2017-10-26 09:14] VITALS: BP 132/79
[2017-10-26] MEDS ORDERED: POLYETHYLENE GLYCOL 17 GM PACKET PO PRN (10:00)
[2017-10-26] MEDS ORDERED: ONDANSETRON 2MG/ML, 2ML IVPush PRN (10:00)
[2017-10-26] MEDS ORDERED: TEMAZEPAM 15 MG CAPSULE PO PRN (10:00)
[2017-10-26] MEDS ORDERED: ACETAMINOPHEN 325 MG TABLET PO PRN (10:00)
[2017-10-26] MEDS ORDERED: hydrALAzine 20 MG/ML, 1ML IVPush PRN (10:00)
[2017-10-26 10:33] LABS: FREE T4 (FREE THYROXINE) 1.96 ng/dL (0.76-1.46); THYROID STIMULATING HORMONE 3.81 mIU/L (0.358-3.740); TOTAL PROTEIN 7.8 g/dL (6.4-8.2)
[2017-10-26] MEDS: CALCITRIOL 0.25 MCG CAPSULE PO SCH (10:51)
[2017-10-26] MEDS: ASPIRIN 81 MG TABLET EC PO SCH (10:51)
[2017-10-26] MEDS: ISOSORBIDE MONONITRATE ER 30 MG TABLET PO SCH (10:51)
[2017-10-26] MEDS: GABAPENTIN 300 MG CAPSULE PO SCH ×3 (10:51→20:21)
[2017-10-26] MEDS ORDERED: LIDOCAINE 2%, 20ML ONE (11:29)
[2017-10-26] MEDS ORDERED: FUROSEMIDE 20 MG/2 ML IV ONE (12:30)
[2017-10-26] MEDS: PIPERACILLIN/TAZO/PMX 2.25GM 50 ML IVPB SCH ×2 (12:38→17:57)
[2017-10-26] MEDS: FEBUXOSTAT 40 MG TABLET PO SCH (12:38)
[2017-10-26] MEDS: INSULIN ASPART 100 UNITS/ML, PEN SQ-INSULIN SCH ×3 (12:57→20:17)
[2017-10-26 13:47] VITALS: BP 142/82
[2017-10-26] MEDS ORDERED: ALBUTEROL/IPRATROPIUM 2.5MG/0.5MG, 3 ML NPPB PRN (14:00)
[2017-10-26] MEDS ORDERED: VECURONIUM 10 MG ONE (16:02)
[2017-10-26] MEDS ORDERED: MIDAZOLAM 1 MG/ML, 2ML ONE (16:02)
[2017-10-26] MEDS: FUROSEMIDE 20 MG/2 ML IV SCH (16:56)
[2017-10-26 19:10] VITALS: BP 124/72
[2017-10-26] MEDS: CARVEDILOL 3.125 MG TABLET PO SCH (20:00)
[2017-10-26] MEDS: HYDROcodone/APAP 5/325 TABLET PO PRN (20:22)
[2017-10-26] MEDS ORDERED: INSULIN DETEMIR 100 UNITS/ML, PEN SQ-INSULIN SCH (21:00)
[2017-10-27] MEDS: PIPERACILLIN/TAZO/PMX 2.25GM 50 ML IVPB SCH ×4 (00:18→17:54)
[2017-10-27 02:00] VITALS: BP 100/55
[2017-10-27 05:28] LABS: MEAN CORPUSCULAR HEMOGLOBIN 29.7 pg (27.5-34.5); MEAN CORPUSCULAR HGB CONC 32.9 g/dL (33.2-36.2); MEAN CORPUSCULAR VOLUME 90.2 fL (81-97); MEAN PLATELET VOLUME 8.7 fL (7.4-10.4); PLATELET COUNT 252 x10^3/uL (130-400); RED BLOOD COUNT 2.76 x10^6/uL (4.38-5.82)
[2017-10-27 05:36] LABS: ALBUMIN 1.2 g/dL (3.4-5.0); ANION GAP 2 mmol/L (5-15); CALCIUM 7.8 mg/dL (8.5-10.1); CHLORIDE 115 mmol/L (98-107)
[2017-10-27 05:39] LABS: ALANINE AMINOTRANSFERASE 12 U/L (12-78); ALKALINE PHOSPHATASE 115 U/L (45-117); BILIRUBIN,TOTAL 1.2 mg/dL (0.2-1.0); CREATININE 2.79 mg/dL (0.7-1.3); TOTAL PROTEIN 5.9 g/dL (6.4-8.2)
[2017-10-27 05:41] LABS: HEMOGLOBIN A1C 9.2 % (4.2-6.3)
[2017-10-27] MEDS: CARVEDILOL 3.125 MG TABLET PO SCH ×2 (05:56→17:54)
[2017-10-27 06:02] LABS: BASOPHILS # (AUTO) 0.13 x10^3/uL (0-0.1); BASOPHILS % (AUTO) 1 % (0-1); EOSINOPHILS # (AUTO) 0.42 x10^3/uL (0-0.4); EOSINOPHILS % (AUTO) 3 % (1-7); LYMPHOCYTES # (AUTO) 1.08 x10^3/uL (1-3.4); LYMPHOCYTES % (AUTO) 6 % (22-44); MD MORPH REVIEW ONLY; MONOCYTES # (AUTO) 1.09 x10^3/uL (0.2-0.8); MONOCYTES % (AUTO) 6 % (2-9); NEUTROPHILS % (AUTO) 84 % (42-75)
[2017-10-27 06:04] LABS: <PLATELET ESTIMATE> ADEQUATE; ANISOCYTOSIS 1+; OVALOCYTES 1+; POLYCHROMASIA 1+
[2017-10-27 06:05] LABS: MICROCYTOSIS 1+
[2017-10-27 06:10] LABS: LARGE PLATELETS 1+
[2017-10-27 06:44] VITALS: BP 107/56
[2017-10-27] MEDS: INSULIN ASPART 100 UNITS/ML, PEN SQ-INSULIN SCH ×4 (08:02→20:39)
[2017-10-27] MEDS: FEBUXOSTAT 40 MG TABLET PO SCH (08:03)
[2017-10-27] MEDS: CALCITRIOL 0.25 MCG CAPSULE PO SCH (08:03)
[2017-10-27] MEDS: FUROSEMIDE 20 MG/2 ML IV SCH ×2 (08:03→16:47)
[2017-10-27] MEDS: ASPIRIN 81 MG TABLET EC PO SCH (08:03)
[2017-10-27] MEDS: GABAPENTIN 300 MG CAPSULE PO SCH ×3 (08:03→20:34)
[2017-10-27] MEDS: ISOSORBIDE MONONITRATE ER 30 MG TABLET PO SCH (08:03)
[2017-10-27 13:02] VITALS: BP 112/63
[2017-10-27 20:42] VITALS: BP 104/57
[2017-10-27] MEDS ORDERED: INSULIN DETEMIR 100 UNITS/ML, PEN SQ-INSULIN SCH (21:00)
[2017-10-28] MEDS: PIPERACILLIN/TAZO/PMX 2.25GM 50 ML IVPB SCH ×5 (00:17→23:52)
[2017-10-28 03:27] VITALS: BP 106/60
[2017-10-28 05:18] VITALS: BP 106/96
[2017-10-28] MEDS: CARVEDILOL 3.125 MG TABLET PO SCH ×2 (05:19→17:32)
[2017-10-28 06:59] VITALS: BP 109/62
[2017-10-28] MEDS ORDERED: VANCOMYCIN 1,800 MG in SODIUM CHLORIDE 0.9% 250 ML IV SCH (08:00)
[2017-10-28 08:12] LABS: MEAN CORPUSCULAR HEMOGLOBIN 28.4 pg (27.5-34.5); MEAN CORPUSCULAR HGB CONC 32.1 g/dL (33.2-36.2); MEAN CORPUSCULAR VOLUME 88.7 fL (81-97); MEAN PLATELET VOLUME 8.3 fL (7.4-10.4); PLATELET COUNT 281 x10^3/uL (130-400); RED BLOOD COUNT 3.04 x10^6/uL (4.38-5.82); RED CELL DISTRIBUTION WIDTH 22.5 % (9.4-14.8)
[2017-10-28 08:14] LABS: ALBUMIN 1.3 g/dL (3.4-5.0); ANION GAP 7 mmol/L (5-15); CALCIUM 7.9 mg/dL (8.5-10.1); CHLORIDE 114 mmol/L (98-107)
[2017-10-28 08:19] LABS: ALANINE AMINOTRANSFERASE 7 U/L (12-78); ALKALINE PHOSPHATASE 128 U/L (45-117); CREATININE 3.06 mg/dL (0.7-1.3); TOTAL PROTEIN 6.4 g/dL (6.4-8.2)
[2017-10-28] MEDS: FEBUXOSTAT 40 MG TABLET PO SCH (08:52)
[2017-10-28] MEDS: ASPIRIN 81 MG TABLET EC PO SCH (08:52)
[2017-10-28] MEDS: CALCITRIOL 0.25 MCG CAPSULE PO SCH (08:52)
[2017-10-28 08:53] LABS: BASOPHILS # (AUTO) 0.15 x10^3/uL (0-0.1); BASOPHILS % (AUTO) 1 % (0-1); EOSINOPHILS # (AUTO) 0.36 x10^3/uL (0-0.4); EOSINOPHILS % (AUTO) 2 % (1-7); LYMPHOCYTES # (AUTO) 1.04 x10^3/uL (1-3.4); LYMPHOCYTES % (AUTO) 6 % (22-44); MD SCAN; MONOCYTES # (AUTO) 1.05 x10^3/uL (0.2-0.8); MONOCYTES % (AUTO) 7 % (2-9); NEUTROPHILS # (AUTO) 13.71 x10^3/uL (1.8-6.8); NEUTROPHILS % (AUTO) 84 % (42-75)
[2017-10-28] MEDS: FUROSEMIDE 20 MG/2 ML IV SCH (08:53)
[2017-10-28] MEDS: ISOSORBIDE MONONITRATE ER 30 MG TABLET PO SCH (08:53)
[2017-10-28] MEDS: GABAPENTIN 300 MG CAPSULE PO SCH ×3 (08:53→20:20)
[2017-10-28] MEDS: INSULIN ASPART 100 UNITS/ML, PEN SQ-INSULIN SCH ×4 (08:54→20:21)
[2017-10-28 12:10] VITALS: BP 114/66
[2017-10-28] MEDS: INSULIN DETEMIR 100 UNITS/ML, PEN SQ-INSULIN SCH ×2 (12:34→20:20)
[2017-10-28 20:32] VITALS: BP 122/68
[2017-10-29 02:37] VITALS: BP 125/69
[2017-10-29] MEDS: CARVEDILOL 3.125 MG TABLET PO SCH ×2 (06:00→17:50)
[2017-10-29] MEDS: PIPERACILLIN/TAZO/PMX 2.25GM 50 ML IVPB SCH ×3 (06:00→17:51)
[2017-10-29 06:17] LABS: CHLORIDE 115 mmol/L (98-107)
[2017-10-29 06:27] LABS: ANION GAP 8 mmol/L (5-15); CALCIUM 7.9 mg/dL (8.5-10.1); CREATININE 3.14 mg/dL (0.7-1.3)
[2017-10-29 06:30] VITALS: BP 131/71
[2017-10-29] MEDS: INSULIN ASPART 100 UNITS/ML, PEN SQ-INSULIN SCH ×4 (07:00→19:45)
[2017-10-29] MEDS ORDERED: FUROSEMIDE 40 MG TABLET ONE (07:44)
[2017-10-29] MEDS: GABAPENTIN 300 MG CAPSULE PO SCH ×2 (07:51→16:37)
[2017-10-29] MEDS: ASPIRIN 81 MG TABLET EC PO SCH (07:51)
[2017-10-29] MEDS: FEBUXOSTAT 40 MG TABLET PO SCH (07:52)
[2017-10-29] MEDS: ISOSORBIDE MONONITRATE ER 30 MG TABLET PO SCH (07:52)
[2017-10-29] MEDS: CALCITRIOL 0.25 MCG CAPSULE PO SCH (07:52)
[2017-10-29] MEDS ORDERED: FUROSEMIDE 40 MG TABLET PO SCH (09:00)
[2017-10-29] MEDS: INSULIN DETEMIR 100 UNITS/ML, PEN SQ-INSULIN SCH (09:00)
[2017-10-29 13:33] VITALS: BP 112/63
[2017-10-29 20:06] VITALS: BP 126/69
[2017-10-30] VITALS (10 sets, daily range): BP systolic 63–112; BP diastolic 45–84
[2017-10-30] MEDS ORDERED: SODIUM CHLORIDE 0.9%, 500ML IVBOLUS ONE ×3 (02:30→07:30)
[2017-10-30] MEDS: CARVEDILOL 3.125 MG TABLET PO SCH (04:46)
[2017-10-30] MEDS: PIPERACILLIN/TAZO/PMX 2.25GM 50 ML IVPB SCH ×4 (05:40→20:15)
[2017-10-30] MEDS: INSULIN ASPART 100 UNITS/ML, PEN SQ-INSULIN SCH ×4 (07:29→20:16)
[2017-10-30] MEDS ORDERED: PANTOPRAZOLE 80 MG in SODIUM CHLORIDE 0.9% 50 ML IV ONE (07:30)
[2017-10-30 08:08] LABS: ALANINE AMINOTRANSFERASE 6 U/L (12-78); ALBUMIN 1.1 g/dL (3.4-5.0); ANION GAP 10 mmol/L (5-15); CALCIUM 7.7 mg/dL (8.5-10.1); CHLORIDE 114 mmol/L (98-107); CREATININE 3.39 mg/dL (0.7-1.3)
[2017-10-30 08:10] LABS: ALKALINE PHOSPHATASE 99 U/L (45-117); BILIRUBIN,TOTAL 1.2 mg/dL (0.2-1.0); TOTAL PROTEIN 5.6 g/dL (6.4-8.2)
[2017-10-30] MEDS: SODIUM CHLORIDE 0.9% 1,000 ML IV SCH ×2 (08:23→21:53)
[2017-10-30] MEDS: PANTOPRAZOLE 80 MG in SODIUM CHLORIDE 0.9% 100 ML IV SCH ×2 (08:23→17:38)
[2017-10-30 08:32] LABS: INTERNATIONAL NORMALIZED RATIO 1.29 (0.93-1.1); PROTHROMBIN TIME 13.3 Seconds (9.6-11.5)
[2017-10-30] MEDS: FEBUXOSTAT 40 MG TABLET PO SCH (08:34)
[2017-10-30] MEDS: CALCITRIOL 0.25 MCG CAPSULE PO SCH (08:34)
[2017-10-30] MEDS ORDERED: VANCOMYCIN 1,400 MG in SODIUM CHLORIDE 0.9% 250 ML IV SCH (09:00)
[2017-10-30] MEDS ORDERED: FUROSEMIDE 20 MG TABLET PO SCH (09:00)
[2017-10-30] MEDS ORDERED: PHENYLEPHRINE 10 MG/ML ONE (09:43)
[2017-10-30] MEDS: PHENYLEPHRINE 20 MG in SODIUM CHLORIDE 0.9% 248 ML IV PRN ×2 (15:04→19:46)
[2017-10-31] MEDS: PHENYLEPHRINE 20 MG in SODIUM CHLORIDE 0.9% 248 ML IV PRN ×4 (00:43→20:21)
[2017-10-31] MEDS: PIPERACILLIN/TAZO/PMX 2.25GM 50 ML IVPB SCH (02:15)
[2017-10-31] MEDS: PANTOPRAZOLE 80 MG in SODIUM CHLORIDE 0.9% 100 ML IV SCH ×2 (02:21→14:13)
[2017-10-31 04:33] LABS: MEAN CORPUSCULAR HEMOGLOBIN 28.6 pg (27.5-34.5); MEAN CORPUSCULAR HGB CONC 32.4 g/dL (33.2-36.2); MEAN CORPUSCULAR VOLUME 88.2 fL (81-97); MEAN PLATELET VOLUME 8.4 fL (7.4-10.4); PLATELET COUNT 261 x10^3/uL (130-400); RED CELL DISTRIBUTION WIDTH 20.5 % (9.4-14.8)
[2017-10-31 04:47] LABS: BASOPHILS # (AUTO) 0.15 x10^3/uL (0-0.1); BASOPHILS % (AUTO) 1 % (0-1); EOSINOPHILS # (AUTO) 0.01 x10^3/uL (0-0.4); EOSINOPHILS % (AUTO) 0 % (1-7); LYMPHOCYTES % (AUTO) 5 % (22-44); MD SCAN; MONOCYTES # (AUTO) 1.14 x10^3/uL (0.2-0.8); MONOCYTES % (AUTO) 5 % (2-9); NEUTROPHILS # (AUTO) 20.39 x10^3/uL (1.8-6.8); NEUTROPHILS % (AUTO) 90 % (42-75)
[2017-10-31 04:53] LABS: ANION GAP 11 mmol/L (5-15); CALCIUM 7.2 mg/dL (8.5-10.1); CHLORIDE 117 mmol/L (98-107); CREATININE 4.05 mg/dL (0.7-1.3)
[2017-10-31 04:54] LABS: ALANINE AMINOTRANSFERASE 9 U/L (12-78); ALBUMIN 1.3 g/dL (3.4-5.0)
[2017-10-31 04:56] LABS: ALKALINE PHOSPHATASE 93 U/L (45-117); BILIRUBIN,TOTAL 1.5 mg/dL (0.2-1.0); TOTAL PROTEIN 5.7 g/dL (6.4-8.2)
[2017-10-31] MEDS: INSULIN ASPART 100 UNITS/ML, PEN SQ-INSULIN SCH ×4 (06:16→22:51)
[2017-10-31] MEDS: CALCITRIOL 0.25 MCG CAPSULE PO SCH (09:00)
[2017-10-31] MEDS: FEBUXOSTAT 40 MG TABLET PO SCH (09:00)
[2017-10-31] MEDS: SODIUM CHLORIDE 0.9% 1,000 ML IV SCH ×2 (09:39→20:21)
[2017-10-31] MEDS: INSULIN DETEMIR 100 UNITS/ML, PEN SQ-INSULIN SCH ×2 (10:46→21:00)
[2017-10-31 15:25] LABS: HEMOGRAM NOTE RECHECKED
[2017-10-31] MEDS ORDERED: ALBUMIN HUMAN 25% 100 ML IV PRN (19:30)
[2017-10-31] MEDS ORDERED: ALBUMIN HUMAN 25% 50 ML IV PRN (19:30)
[2017-10-31 20:36] LABS: HEMOGRAM NOTE RECHECKED
[2017-10-31 21:13] VITALS: BP 82/50
[2017-10-31 21:28] VITALS: BP 89/55
[2017-10-31 21:33] VITALS: BP 89/41
[2017-10-31 21:34] VITALS: BP 89/55
[2017-10-31 21:44] VITALS: BP 101/60
[2017-11-01] VITALS (18 sets, daily range): BP systolic 90–113; BP diastolic 31–78
[2017-11-01] MEDS: PHENYLEPHRINE 20 MG in SODIUM CHLORIDE 0.9% 248 ML IV PRN (00:27)
[2017-11-01] MEDS: PANTOPRAZOLE 80 MG in SODIUM CHLORIDE 0.9% 100 ML IV SCH ×3 (00:27→21:53)
[2017-11-01 05:14] LABS: MEAN CORPUSCULAR HEMOGLOBIN 30.2 pg (27.5-34.5); MEAN CORPUSCULAR HGB CONC 34.2 g/dL (33.2-36.2); MEAN CORPUSCULAR VOLUME 88.4 fL (81-97); PLATELET COUNT 140 x10^3/uL (130-400); RED BLOOD COUNT 2.43 x10^6/uL (4.38-5.82); RED CELL DISTRIBUTION WIDTH 16.1 % (9.4-14.8)
[2017-11-01 05:26] LABS: CHLORIDE 113 mmol/L (98-107)
[2017-11-01 05:40] LABS: ANION GAP 9 mmol/L (5-15); CALCIUM 6.7 mg/dL (8.5-10.1); CREATININE 2.83 mg/dL (0.7-1.3)
[2017-11-01 05:44] LABS: BASOPHILS # (AUTO) 0.04 x10^3/uL (0-0.1); BASOPHILS % (AUTO) 0 % (0-1); EOSINOPHILS # (AUTO) 0.03 x10^3/uL (0-0.4); EOSINOPHILS % (AUTO) 0 % (1-7); LYMPHOCYTES # (AUTO) 1.03 x10^3/uL (1-3.4); LYMPHOCYTES % (AUTO) 5 % (22-44); MD SCAN; MONOCYTES % (AUTO) 5 % (2-9); NEUTROPHILS # (AUTO) 18.03 x10^3/uL (1.8-6.8); NEUTROPHILS % (AUTO) 90 % (42-75)
[2017-11-01] MEDS: SODIUM CHLORIDE 0.9% 1,000 ML IV SCH ×3 (06:00→14:02)
[2017-11-01] MEDS: INSULIN ASPART 100 UNITS/ML, PEN SQ-INSULIN SCH ×4 (06:04→21:54)
[2017-11-01] MEDS: PHENYLEPHRINE 40 MG in SODIUM CHLORIDE 0.9% 246 ML IV PRN ×2 (06:12→14:05)
[2017-11-01] MEDS: CALCITRIOL 0.25 MCG CAPSULE PO SCH (09:00)
[2017-11-01] MEDS: FEBUXOSTAT 40 MG TABLET PO SCH (09:00)
[2017-11-01] MEDS: INSULIN DETEMIR 100 UNITS/ML, PEN SQ-INSULIN SCH ×2 (09:00→21:00)
[2017-11-01 20:22] LABS: HEMOGRAM NOTE RECHECKED
[2017-11-01] MEDS: NOREPINEPHRINE 4 MG in SODIUM CHLORIDE 0.9% 246 ML IV PRN (22:32)
[2017-11-02] VITALS (9 sets, daily range): BP systolic 78–132; BP diastolic 46–73
[2017-11-02 05:01] LABS: ALANINE AMINOTRANSFERASE 8 U/L (12-78); ALBUMIN 1.4 g/dL (3.4-5.0); ANION GAP 12 mmol/L (5-15); CALCIUM 6.6 mg/dL (8.5-10.1); CHLORIDE 115 mmol/L (98-107); CREATININE 3.69 mg/dL (0.7-1.3)
[2017-11-02 05:03] LABS: ALKALINE PHOSPHATASE 82 U/L (45-117); BILIRUBIN,TOTAL 1.5 mg/dL (0.2-1.0); TOTAL PROTEIN 4.4 g/dL (6.4-8.2)
[2017-11-02 05:18] LABS: MEAN CORPUSCULAR HEMOGLOBIN 30.3 pg (27.5-34.5); MEAN CORPUSCULAR HGB CONC 33.8 g/dL (33.2-36.2); MEAN CORPUSCULAR VOLUME 89.6 fL (81-97); PLATELET COUNT 94 x10^3/uL (130-400); RED BLOOD COUNT 2.91 x10^6/uL (4.38-5.82); RED CELL DISTRIBUTION WIDTH 14.9 % (9.4-14.8)
[2017-11-02] MEDS: INSULIN ASPART 100 UNITS/ML, PEN SQ-INSULIN SCH ×4 (05:47→22:42)
[2017-11-02] MEDS: SODIUM CHLORIDE 0.9% 1,000 ML IV SCH ×2 (05:48→12:20)
[2017-11-02 06:12] LABS: MD YES
[2017-11-02] MEDS: PANTOPRAZOLE 80 MG in SODIUM CHLORIDE 0.9% 100 ML IV SCH ×2 (06:13→19:23)
[2017-11-02 06:14] LABS: EOS#(MANUAL) 0.24 x10^3/uL (0.0-0.4); EOS% (MANUAL) 1 % (1-7); LYMPH#(MANUAL) 0.73 x10^3/uL (1-3.4); LYMPHS% (MANUAL) 3 % (22-44); MONOS#(MANUAL) 1.21 x10^3/uL (0.3-2.7); MONOS% (MANUAL) 5 % (2-9); SEG#(MANUAL) 22.02 x10^3/uL (1.8-6.8); SEGS% (MANUAL) 91 % (42-75)
[2017-11-02] MEDS: NOREPINEPHRINE 4 MG in SODIUM CHLORIDE 0.9% 246 ML IV PRN ×3 (06:14→21:28)
[2017-11-02 06:15] LABS: NRBC % (MANUAL) 1 % (0-1)
[2017-11-02 06:17] LABS: ANISOCYTOSIS 1+; POLYCHROMASIA 1+
[2017-11-02 06:18] LABS: <PLATELET ESTIMATE> DECREASED; <PLT MORPHOLOGY> NORMAL PLT MORPH
[2017-11-02] MEDS: CALCITRIOL 0.25 MCG CAPSULE PO SCH (09:00)
[2017-11-02] MEDS: FEBUXOSTAT 40 MG TABLET PO SCH (09:00)
[2017-11-02] MEDS: INSULIN DETEMIR 100 UNITS/ML, PEN SQ-INSULIN SCH (09:00)
[2017-11-02] MEDS ORDERED: MAGNESIUM SULFATE PMX 2GM/50ML 50 ML IV ONE (09:30)
[2017-11-02] MEDS ORDERED: OMNIPAQUE 350 MG/ML, 100ML BOTTLE ONE (10:55)
[2017-11-02] MEDS ORDERED: SODIUM CHLORIDE 0.9%, 500ML IVBOLUS ONE (11:00)
[2017-11-02] MEDS: AMPICILLIN/SULBACTAM 3 GM in SODIUM CHLORIDE 0.9% 100 ML IV SCH ×2 (11:18→19:23)
[2017-11-02] MEDS ORDERED: INSULIN LISPRO 100 UNITS/ML, PEN SQ-INSULIN SCH (14:30)
[2017-11-02] MEDS ORDERED: GOLYTELY 4,000ML ORAL.SOL PO ONE (14:30)
[2017-11-02] MEDS ORDERED: INSULIN GLARGINE 100 UNITS/ML, PEN SQ-INSULIN SCH (21:00)
[2017-11-03] VITALS (9 sets, daily range): BP systolic 71–143; BP diastolic 46–99
[2017-11-03] MEDS: SODIUM CHLORIDE 0.9% 1,000 ML IV SCH ×2 (00:54→09:00)
[2017-11-03] MEDS: AMPICILLIN/SULBACTAM 3 GM in SODIUM CHLORIDE 0.9% 100 ML IV SCH ×4 (01:00→20:13)
[2017-11-03] MEDS: morphine SULFATE 10 MG/ML, 1ML IVPush PRN (01:05)
[2017-11-03] MEDS: NOREPINEPHRINE 4 MG in SODIUM CHLORIDE 0.9% 246 ML IV PRN ×4 (01:32→09:04)
[2017-11-03] MEDS: PHENYLEPHRINE 40 MG in SODIUM CHLORIDE 0.9% 246 ML IV PRN ×5 (02:34→21:14)
[2017-11-03 02:55] LABS: CALCIUM 6.5 mg/dL (8.5-10.1)
[2017-11-03 03:01] LABS: ALBUMIN 1.1 g/dL (3.4-5.0); ANION GAP 9 mmol/L (5-15); CALCIUM 6.2 mg/dL (8.5-10.1); CHLORIDE 112 mmol/L (98-107); CREATININE 2.75 mg/dL (0.7-1.3)
[2017-11-03 03:03] LABS: ALANINE AMINOTRANSFERASE < 6 U/L (12-78)
[2017-11-03 03:04] LABS: ALKALINE PHOSPHATASE 53 U/L (45-117); BILIRUBIN,TOTAL 1.2 mg/dL (0.2-1.0); TOTAL PROTEIN 3.7 g/dL (6.4-8.2)
[2017-11-03] MEDS: INSULIN ASPART 100 UNITS/ML, PEN SQ-INSULIN SCH ×4 (04:55→23:22)
[2017-11-03] MEDS: PANTOPRAZOLE 80 MG in SODIUM CHLORIDE 0.9% 100 ML IV SCH ×2 (06:17→16:01)
[2017-11-03 07:52] LABS: MEAN CORPUSCULAR HEMOGLOBIN 29.5 pg (27.5-34.5); MEAN CORPUSCULAR HGB CONC 33.9 g/dL (33.2-36.2); MEAN CORPUSCULAR VOLUME 87.1 fL (81-97); RED BLOOD COUNT 2.85 x10^6/uL (4.38-5.82); RED CELL DISTRIBUTION WIDTH 15.4 % (9.4-14.8)
[2017-11-03] MEDS ORDERED: SUCCINYLCHOLINE 20 MG/ML, 10ML ONE (08:00)
[2017-11-03] MEDS ORDERED: ETOMIDATE 20 MG/10 ML ONE (08:00)
[2017-11-03] MEDS ORDERED: PROPOFOL 10 MG/ML, 100ML IV ONE (08:00)
[2017-11-03 08:08] LABS: MD YES
[2017-11-03 08:13] LABS: MEAN PLATELET VOLUME 9.2 fL (7.4-10.4); PLATELET COUNT 71 x10^3/uL (130-400)
[2017-11-03 08:14] LABS: ANISOCYTOSIS 1+; BAND#(MANUAL) 0.59 x10^3/uL; BANDS%(MANUAL) 2 % (0-7); LYMPH#(MANUAL) 0.29 x10^3/uL (1-3.4); LYMPHS% (MANUAL) 1 % (22-44); NRBC % (MANUAL) 4 % (0-1); POLYCHROMASIA 1+; SEG#(MANUAL) 28.52 x10^3/uL (1.8-6.8); SEGS% (MANUAL) 97 % (42-75)
[2017-11-03 08:16] LABS: PAPPENHEIMER BODIES 1+
[2017-11-03 08:19] LABS: <PLATELET ESTIMATE> DECREASED; LARGE PLATELETS 1+
[2017-11-03] MEDS: FEBUXOSTAT 40 MG TABLET PO SCH (09:00)
[2017-11-03] MEDS: CALCITRIOL 0.25 MCG CAPSULE PO SCH (09:00)
[2017-11-03] MEDS ORDERED: ERGOCALCIFEROL 50,000 UNIT CAPSULE PO SCH (09:30)
[2017-11-03] MEDS ORDERED: FENTANYL PF 100 MCG/2ML ONE (10:44)
[2017-11-03] MEDS ORDERED: MIDAZOLAM 1 MG/ML, 5ML ONE (10:44)
[2017-11-03] MEDS: AMIODARONE 900 MG in DEXTROSE 5% 482 ML IV PRN (12:29)
[2017-11-03] MEDS: NOREPINEPHRINE 8 MG in SODIUM CHLORIDE 0.9% 242 ML IV PRN ×3 (12:30→22:26)
[2017-11-03] MEDS ORDERED: MAGNESIUM SULFATE 1 GM/2 ML IVPush ONE (12:30)
[2017-11-03] MEDS ORDERED: VASOPRESSIN 100 UNIT in SODIUM CHLORIDE 0.9% 495 ML IV PRN (12:30)
[2017-11-03] MEDS ORDERED: AMIODARONE 150 MG in DEXTROSE 5% 100 ML IV ONE (12:30)
[2017-11-03] MEDS: VASOPRESSIN 100 UNIT in SODIUM CHLORIDE 0.9% 495 ML IV PRN (12:30)
[2017-11-03] MEDS ORDERED: AMIODARONE 50 MG/ML, 3ML IVPush ONE (12:30)
[2017-11-03] MEDS ORDERED: ETOMIDATE 20 MG/10 ML IVPush ONE (12:30)
[2017-11-03 12:54] LABS: ALANINE AMINOTRANSFERASE 8 U/L (12-78); ALBUMIN 1.1 g/dL (3.4-5.0); ANION GAP 14 mmol/L (5-15); CALCIUM 6.4 mg/dL (8.5-10.1); CREATININE 3.05 mg/dL (0.7-1.3)
[2017-11-03 12:59] LABS: ALKALINE PHOSPHATASE 59 U/L (45-117); BILIRUBIN,TOTAL 1.2 mg/dL (0.2-1.0); CHLORIDE 113 mmol/L (98-107); TOTAL PROTEIN 3.8 g/dL (6.4-8.2)
[2017-11-03] MEDS ORDERED: EPINEPHRINE 2 MG in SODIUM CHLORIDE 0.9% 248 ML IV PRN (13:00)
[2017-11-03] MEDS: HYDROCORTISONE 100 MG INJ. IVPush SCH ×2 (14:22→20:55)
[2017-11-03] MEDS ORDERED: PHARMACY MAY ADJ FOR RENAL FX MC SCH (14:30)
[2017-11-03] MEDS: PROPOFOL 100 ML IV PRN (19:29)
[2017-11-04] MEDS: AMPICILLIN/SULBACTAM 3 GM in SODIUM CHLORIDE 0.9% 100 ML IV SCH ×4 (01:49→20:01)
[2017-11-04] MEDS: HYDROCORTISONE 100 MG INJ. IVPush SCH ×4 (01:49→20:01)
[2017-11-04] MEDS: PANTOPRAZOLE 80 MG in SODIUM CHLORIDE 0.9% 100 ML IV SCH ×2 (02:59→14:44)
[2017-11-04] MEDS: PROPOFOL 100 ML IV PRN ×3 (04:15→20:01)
[2017-11-04] MEDS: PHENYLEPHRINE 80 MG in SODIUM CHLORIDE 0.9% 242 ML IV PRN (04:29)
[2017-11-04] MEDS: INSULIN ASPART 100 UNITS/ML, PEN SQ-INSULIN SCH ×4 (04:53→23:10)
[2017-11-04 05:07] LABS: ALBUMIN 1.2 g/dL (3.4-5.0); ANION GAP 21 mmol/L (5-15); CALCIUM 6.3 mg/dL (8.5-10.1); CHLORIDE 112 mmol/L (98-107)
[2017-11-04 05:57] LABS: ALANINE AMINOTRANSFERASE 49 U/L (12-78); ALKALINE PHOSPHATASE 83 U/L (45-117); BILIRUBIN,TOTAL 1.3 mg/dL (0.2-1.0); CREATININE 3.54 mg/dL (0.7-1.3); TOTAL IRON BINDING CAPACITY 87 mcg/dL (250-450); TOTAL PROTEIN 4.2 g/dL (6.4-8.2)
[2017-11-04 06:03] LABS: % IRON SATURATION 60 % (20-55); IRON LEVEL 52 mcg/dL (65-175)
[2017-11-04 06:25] LABS: MEAN CORPUSCULAR HEMOGLOBIN 31.4 pg (27.5-34.5); MEAN CORPUSCULAR HGB CONC 35.1 g/dL (33.2-36.2); MEAN CORPUSCULAR VOLUME 89.7 fL (81-97); RED BLOOD COUNT 3.22 x10^6/uL (4.38-5.82); RED CELL DISTRIBUTION WIDTH 15.6 % (9.4-14.8)
[2017-11-04 06:29] LABS: MD YES; MEAN PLATELET VOLUME 10.6 fL (7.4-10.4); PLATELET COUNT 122 x10^3/uL (130-400)
[2017-11-04 06:31] LABS: ANISOCYTOSIS 1+; BAND#(MANUAL) 0.31 x10^3/uL; BANDS%(MANUAL) 1 % (0-7); LYMPH#(MANUAL) 0.31 x10^3/uL (1-3.4); LYMPHS% (MANUAL) 1 % (22-44); NRBC % (MANUAL) 9 % (0-1); POLYCHROMASIA 1+; SEG#(MANUAL) 30.18 x10^3/uL (1.8-6.8); SEGS% (MANUAL) 98 % (42-75)
[2017-11-04 06:32] LABS: <PLATELET ESTIMATE> DECREASED; LARGE PLATELETS 1+
[2017-11-04] MEDS: NOREPINEPHRINE 8 MG in SODIUM CHLORIDE 0.9% 242 ML IV PRN ×2 (07:09→11:25)
[2017-11-04] MEDS: CALCITRIOL 0.25 MCG CAPSULE PO SCH (09:00)
[2017-11-04] MEDS: FEBUXOSTAT 40 MG TABLET PO SCH (09:00)
[2017-11-04] MEDS: SODIUM CHLORIDE 0.9% 1,000 ML IV SCH (09:00)
[2017-11-04] MEDS: AMIODARONE 900 MG in DEXTROSE 5% 482 ML IV PRN (11:22)
[2017-11-04] MEDS ORDERED: DEXTROSE 5% IV ONE (11:30)
[2017-11-04] MEDS ORDERED: AMIODARONE IV ONE (11:30)
[2017-11-04] MEDS ORDERED: MIDAZOLAM 1 MG/ML, 5ML ONE (14:54)
[2017-11-04 15:06] VITALS: BP 139/50
[2017-11-04 15:15] VITALS: BP 126/47
[2017-11-04 15:30] VITALS: BP 123/45
[2017-11-04 18:22] VITALS: BP 109/41
[2017-11-04] MEDS ORDERED: AMIODARONE 50 MG/ML, 3ML ONE (23:00)
[2017-11-05] MEDS: PANTOPRAZOLE 80 MG in SODIUM CHLORIDE 0.9% 100 ML IV SCH ×3 (00:25→20:28)
[2017-11-05] MEDS: AMPICILLIN/SULBACTAM 3 GM in SODIUM CHLORIDE 0.9% 100 ML IV SCH ×4 (01:39→20:28)
[2017-11-05] MEDS: HYDROCORTISONE 100 MG INJ. IVPush SCH ×4 (01:40→20:29)
[2017-11-05] MEDS: PROPOFOL 100 ML IV PRN (01:50)
[2017-11-05 04:43] LABS: ALANINE AMINOTRANSFERASE 102 U/L (12-78); ALBUMIN 1.6 g/dL (3.4-5.0); ANION GAP 19 mmol/L (5-15); CALCIUM 6.6 mg/dL (8.5-10.1); CHLORIDE 108 mmol/L (98-107); CREATININE 3.09 mg/dL (0.7-1.3)
[2017-11-05 04:47] LABS: ALKALINE PHOSPHATASE 86 U/L (45-117); BILIRUBIN,TOTAL 1.9 mg/dL (0.2-1.0); TOTAL PROTEIN 4.1 g/dL (6.4-8.2)
[2017-11-05] MEDS: NOREPINEPHRINE 8 MG in SODIUM CHLORIDE 0.9% 242 ML IV PRN (05:51)
[2017-11-05] MEDS: INSULIN ASPART 100 UNITS/ML, PEN SQ-INSULIN SCH (05:52)
[2017-11-05 06:04] LABS: MEAN CORPUSCULAR HGB CONC 34.4 g/dL (33.2-36.2); MEAN CORPUSCULAR VOLUME 90.1 fL (81-97); MEAN PLATELET VOLUME 10.3 fL (7.4-10.4); PLATELET COUNT 65 x10^3/uL (130-400); RED CELL DISTRIBUTION WIDTH 15.2 % (9.4-14.8)
[2017-11-05 06:05] LABS: MD YES
[2017-11-05 06:07] LABS: ANISOCYTOSIS 1+; BAND#(MANUAL) 0.64 x10^3/uL; BANDS%(MANUAL) 2 % (0-7); MONOS#(MANUAL) 0.96 x10^3/uL (0.3-2.7); MONOS% (MANUAL) 3 % (2-9); NRBC % (MANUAL) 3 % (0-1); POLYCHROMASIA 1+; SEGS% (MANUAL) 95 % (42-75)
[2017-11-05 06:08] LABS: <PLATELET ESTIMATE> DECREASED; <PLT MORPHOLOGY> NORMAL PLT MORPH
[2017-11-05 06:10] LABS: SMUDGE CELLS 1+
[2017-11-05] MEDS: CALCITRIOL 0.25 MCG CAPSULE PO SCH (09:00)
[2017-11-05] MEDS ORDERED: TPN PER PHARMACY MC PRN (09:30)
[2017-11-05] MEDS: PHENYLEPHRINE 80 MG in SODIUM CHLORIDE 0.9% 242 ML IV PRN (10:20)
[2017-11-05] MEDS: VASOPRESSIN 100 UNIT in SODIUM CHLORIDE 0.9% 495 ML IV PRN (10:58)
[2017-11-05] MEDS: FEBUXOSTAT 40 MG TABLET PO SCH (11:09)
[2017-11-05] MEDS: ALBUMIN HUMAN 25% 100 ML IV SCH ×3 (11:10→20:35)
[2017-11-05] MEDS: INSULIN ASPART 100 UNITS/ML, 3ML PEN HIGH DOSE SS SQ-INSULIN SCH ×2 (11:56→17:55)
[2017-11-05] MEDS: AMIODARONE 900 MG in DEXTROSE 5% 482 ML IV PRN (13:37)
[2017-11-05] MEDS: morphine SULFATE 10 MG/ML, 1ML IVPush PRN (15:01)
[2017-11-05] MEDS ORDERED: DEXTROSE 50%, 50ML SYRINGE IVPush PRN (17:00)
[2017-11-05] MEDS ORDERED: FILTER, DISP 1.2 MICRON FOR TPN/PVN IV PRN (17:00)
[2017-11-05] MEDS ORDERED: AMINO ACID 10% IV SCH (17:00)
[2017-11-05] MEDS ORDERED: FAT EMULSIONS IV SCH (17:00)
[2017-11-05] MEDS ORDERED: [UNRECOGNIZED DRUG - OTHER] IV SCH (17:00)
[2017-11-05] MEDS ORDERED: DEXTROSE 70% IV SCH (17:00)
[2017-11-05] MEDS ORDERED: DEXTROSE 10% 500 ML IV PRN (17:00)
[2017-11-06] VITALS (22 sets, daily range): BP systolic 119–137; BP diastolic 47–58
[2017-11-06] MEDS: PANTOPRAZOLE 80 MG in SODIUM CHLORIDE 0.9% 100 ML IV SCH ×3 (00:35→18:13)
[2017-11-06] MEDS: morphine SULFATE 10 MG/ML, 1ML IVPush PRN (00:35)
[2017-11-06] MEDS: INSULIN ASPART 100 UNITS/ML, 3ML PEN HIGH DOSE SS SQ-INSULIN SCH ×2 (00:47→05:57)
[2017-11-06] MEDS: HYDROCORTISONE 100 MG INJ. IVPush SCH ×4 (01:36→20:19)
[2017-11-06] MEDS: AMPICILLIN/SULBACTAM 3 GM in SODIUM CHLORIDE 0.9% 100 ML IV SCH ×2 (01:36→20:19)
[2017-11-06] MEDS: ALBUMIN HUMAN 25% 100 ML IV SCH (03:24)
[2017-11-06 05:04] LABS: CHLORIDE 108 mmol/L (98-107)
[2017-11-06 05:08] LABS: MEAN CORPUSCULAR HEMOGLOBIN 31.6 pg (27.5-34.5); MEAN CORPUSCULAR HGB CONC 34.7 g/dL (33.2-36.2); MEAN CORPUSCULAR VOLUME 91.2 fL (81-97); RED BLOOD COUNT 2.21 x10^6/uL (4.38-5.82); RED CELL DISTRIBUTION WIDTH 15.5 % (9.4-14.8)
[2017-11-06 05:27] LABS: ALANINE AMINOTRANSFERASE 57 U/L (12-78); ALBUMIN 2.2 g/dL (3.4-5.0); ALKALINE PHOSPHATASE 65 U/L (45-117); ANION GAP 19 mmol/L (5-15); BILIRUBIN,TOTAL 1.4 mg/dL (0.2-1.0); CALCIUM 6.8 mg/dL (8.5-10.1); TOTAL PROTEIN 4.2 g/dL (6.4-8.2); TRIGLYCERIDES 291 mg/dL (50-200)
[2017-11-06 05:32] LABS: PREALBUMIN 14.8 mg/dL (20.0-40.0)
[2017-11-06 05:49] LABS: MEAN PLATELET VOLUME 9.2 fL (7.4-10.4)
[2017-11-06 05:52] LABS: PLATELET COUNT 46 x10^3/uL (130-400)
[2017-11-06 05:53] LABS: MD YES
[2017-11-06 05:54] LABS: BAND#(MANUAL) 0.26 x10^3/uL; BANDS%(MANUAL) 1 % (0-7); LYMPH#(MANUAL) 0.26 x10^3/uL (1-3.4); LYMPHS% (MANUAL) 1 % (22-44); MONOS#(MANUAL) 0.53 x10^3/uL (0.3-2.7); MONOS% (MANUAL) 2 % (2-9); NRBC % (MANUAL) 1 % (0-1); SEG#(MANUAL) 25.34 x10^3/uL (1.8-6.8); SEGS% (MANUAL) 96 % (42-75)
[2017-11-06 05:55] LABS: ANISOCYTOSIS 1+; POLYCHROMASIA 1+; SMUDGE CELLS 1+
[2017-11-06 05:56] LABS: <PLATELET ESTIMATE> DECREASED
[2017-11-06 05:57] LABS: <PLT MORPHOLOGY> NORMAL PLT MORPH
[2017-11-06] MEDS ORDERED: POTASSIUM CHLORIDE PMX 100 ML IV ONE (09:30)
[2017-11-06] MEDS: CALCITRIOL 0.25 MCG CAPSULE PO SCH (09:36)
[2017-11-06] MEDS: FEBUXOSTAT 40 MG TABLET PO SCH (09:36)
[2017-11-06 10:46] LABS: INTERNATIONAL NORMALIZED RATIO 1.9 (0.93-1.1); PROTHROMBIN TIME 19.5 Seconds (9.6-11.5)
[2017-11-06] MEDS: INSULIN LISPRO 100 UNITS/ML, PEN VERY HIGH DOSE SS SQ-INSULIN SCH ×2 (12:49→17:07)
[2017-11-06] MEDS ORDERED: AMPICILLIN/SULBACTAM 3 GM in SODIUM CHLORIDE 0.9% 100 ML IV SCH (14:00)
[2017-11-06 14:51] LABS: ALBUMIN 2.5 g/dL (3.4-5.0); ANION GAP 13 mmol/L (5-15); CALCIUM 7.8 mg/dL (8.5-10.1); CHLORIDE 109 mmol/L (98-107); CREATININE 2.27 mg/dL (0.7-1.3)
[2017-11-06 15:15] LABS: BASOPHILS # (AUTO) 0.13 x10^3/uL (0-0.1); BASOPHILS % (AUTO) 1 % (0-1); EOSINOPHILS # (AUTO) 0.02 x10^3/uL (0-0.4); EOSINOPHILS % (AUTO) 0 % (1-7); LYMPHOCYTES # (AUTO) 0.33 x10^3/uL (1-3.4); LYMPHOCYTES % (AUTO) 1 % (22-44); MD MORPH REVIEW ONLY; MEAN CORPUSCULAR HGB CONC 35.3 g/dL (33.2-36.2); MEAN CORPUSCULAR VOLUME 90.6 fL (81-97); MEAN PLATELET VOLUME 9.6 fL (7.4-10.4); MONOCYTES # (AUTO) 0.26 x10^3/uL (0.2-0.8); MONOCYTES % (AUTO) 1 % (2-9); NEUTROPHILS # (AUTO) 26.37 x10^3/uL (1.8-6.8); NEUTROPHILS % (AUTO) 97 % (42-75); RED BLOOD COUNT 2.57 x10^6/uL (4.38-5.82); RED CELL DISTRIBUTION WIDTH 15.5 % (9.4-14.8)
[2017-11-06 15:16] LABS: <PLATELET ESTIMATE> DECREASED; <PLT MORPHOLOGY> NORMAL PLT MORPH; ANISOCYTOSIS 1+; POLYCHROMASIA 1+
[2017-11-06 15:21] LABS: PLATELET COUNT 30 x10^3/uL (130-400)
[2017-11-06] MEDS ORDERED: AMINO ACID 10% IV SCH (17:00)
[2017-11-06] MEDS ORDERED: DEXTROSE 70% IV SCH (17:00)
[2017-11-06] MEDS ORDERED: FAT EMULSIONS IV SCH (17:00)
[2017-11-06] MEDS ORDERED: FILTER, DISP 1.2 MICRON FOR TPN/PVN IV PRN (17:00)
[2017-11-06] MEDS ORDERED: [UNRECOGNIZED DRUG - OTHER] IV SCH (17:00)
[2017-11-07] MEDS: HYDROCORTISONE 100 MG INJ. IVPush SCH ×4 (01:20→18:37)
[2017-11-07] MEDS: INSULIN LISPRO 100 UNITS/ML, PEN VERY HIGH DOSE SS SQ-INSULIN SCH ×4 (01:21→17:24)
[2017-11-07 04:44] LABS: ALBUMIN 2.6 g/dL (3.4-5.0); ANION GAP 12 mmol/L (5-15); CHLORIDE 108 mmol/L (98-107)
[2017-11-07 04:49] LABS: ALANINE AMINOTRANSFERASE 50 U/L (12-78); ALKALINE PHOSPHATASE 84 U/L (45-117); BILIRUBIN,TOTAL 1.7 mg/dL (0.2-1.0); CREATININE 2.32 mg/dL (0.7-1.3); TOTAL PROTEIN 5.4 g/dL (6.4-8.2)
[2017-11-07 04:56] LABS: MEAN CORPUSCULAR HEMOGLOBIN 30.4 pg (27.5-34.5); MEAN CORPUSCULAR HGB CONC 32.9 g/dL (33.2-36.2); MEAN CORPUSCULAR VOLUME 92.4 fL (81-97); RED BLOOD COUNT 2.82 x10^6/uL (4.38-5.82); RED CELL DISTRIBUTION WIDTH 16.1 % (9.4-14.8)
[2017-11-07 05:07] LABS: BASOPHILS # (AUTO) 0.38 x10^3/uL (0-0.1); BASOPHILS % (AUTO) 1 % (0-1); EOSINOPHILS % (AUTO) 0 % (1-7); LYMPHOCYTES % (AUTO) 1 % (22-44); MD SCAN; MONOCYTES # (AUTO) 0.67 x10^3/uL (0.2-0.8); MONOCYTES % (AUTO) 2 % (2-9); NEUTROPHILS # (AUTO) 26.65 x10^3/uL (1.8-6.8); NEUTROPHILS % (AUTO) 96 % (42-75)
[2017-11-07] MEDS: PANTOPRAZOLE 80 MG in SODIUM CHLORIDE 0.9% 100 ML IV SCH ×2 (05:10→14:22)
[2017-11-07 05:37] LABS: PLATELET COUNT 32 x10^3/uL (130-400)
[2017-11-07] MEDS ORDERED: ALBUTEROL/IPRATROPIUM 2.5MG/0.5MG, 3 ML ONE (09:49)
[2017-11-07] MEDS ORDERED: PROPOFOL 100 ML IV PRN (09:58)
[2017-11-07] MEDS: FEBUXOSTAT 40 MG TABLET PO SCH (10:46)
[2017-11-07] MEDS: CALCITRIOL 0.25 MCG CAPSULE PO SCH (10:46)
[2017-11-07] MEDS: INSULIN NPH HUMAN 100 UNIT/ML, 3ML VIAL SQ-INSULIN SCH ×2 (11:44→20:46)
[2017-11-07] MEDS: ALBUTEROL/IPRATROPIUM 2.5MG/0.5MG, 3 ML INLINE SCH ×3 (14:19→23:00)
[2017-11-07 14:27] LABS: ANION GAP 11 mmol/L (5-15); CALCIUM 8.7 mg/dL (8.5-10.1); CHLORIDE 108 mmol/L (98-107); CREATININE 1.62 mg/dL (0.7-1.3)
[2017-11-07 14:28] LABS: ALBUMIN 2.2 g/dL (3.4-5.0)
[2017-11-07 14:41] LABS: BASOPHILS # (AUTO) 0.39 x10^3/uL (0-0.1); BASOPHILS % (AUTO) 2 % (0-1); EOSINOPHILS % (AUTO) 0 % (1-7); LYMPHOCYTES # (AUTO) 0.43 x10^3/uL (1-3.4); LYMPHOCYTES % (AUTO) 2 % (22-44); MD SCAN; MEAN CORPUSCULAR HGB CONC 33.8 g/dL (33.2-36.2); MEAN CORPUSCULAR VOLUME 91.9 fL (81-97); MEAN PLATELET VOLUME 9.7 fL (7.4-10.4); MONOCYTES # (AUTO) 0.65 x10^3/uL (0.2-0.8); MONOCYTES % (AUTO) 3 % (2-9); NEUTROPHILS % (AUTO) 94 % (42-75); RED CELL DISTRIBUTION WIDTH 16.3 % (9.4-14.8)
[2017-11-07 14:43] LABS: PLATELET COUNT 30 x10^3/uL (130-400)
[2017-11-07] MEDS ORDERED: DEXTROSE 70% IV SCH (17:00)
[2017-11-07] MEDS ORDERED: [UNRECOGNIZED DRUG - OTHER] IV SCH (17:00)
[2017-11-07] MEDS ORDERED: FAT EMULSIONS IV SCH (17:00)
[2017-11-07] MEDS ORDERED: AMINO ACID 10% IV SCH (17:00)
[2017-11-07] MEDS: FILTER, DISP 1.2 MICRON FOR TPN/PVN IV PRN (17:25)
[2017-11-07] MEDS: PROPOFOL 100 ML IV PRN (17:36)
[2017-11-07] MEDS: HYDROcodone/APAP 5/325 TABLET PO PRN (20:39)
[2017-11-07] MEDS: AMPICILLIN/SULBACTAM 3 GM in SODIUM CHLORIDE 0.9% 100 ML IV SCH (20:40)
[2017-11-08] MEDS: HYDROCORTISONE 100 MG INJ. IVPush SCH ×4 (00:48→19:36)
[2017-11-08] MEDS: PANTOPRAZOLE 80 MG in SODIUM CHLORIDE 0.9% 100 ML IV SCH ×3 (01:33→21:00)
[2017-11-08] MEDS: NOREPINEPHRINE 8 MG in SODIUM CHLORIDE 0.9% 242 ML IV PRN (01:33)
[2017-11-08] MEDS: INSULIN LISPRO 100 UNITS/ML, PEN VERY HIGH DOSE SS SQ-INSULIN SCH ×4 (01:34→17:26)
[2017-11-08] MEDS: ALBUTEROL/IPRATROPIUM 2.5MG/0.5MG, 3 ML INLINE SCH ×6 (03:00→23:00)
[2017-11-08] MEDS: PROPOFOL 100 ML IV PRN ×3 (04:46→20:35)
[2017-11-08 05:55] LABS: ALBUMIN 1.8 g/dL (3.4-5.0); ANION GAP 10 mmol/L (5-15); CALCIUM 8.2 mg/dL (8.5-10.1); CHLORIDE 109 mmol/L (98-107)
[2017-11-08 06:00] LABS: ALANINE AMINOTRANSFERASE 35 U/L (12-78); ALKALINE PHOSPHATASE 71 U/L (45-117); BILIRUBIN,TOTAL 1.6 mg/dL (0.2-1.0); CREATININE 1.64 mg/dL (0.7-1.3)
[2017-11-08 06:41] LABS: MEAN CORPUSCULAR HEMOGLOBIN 31.3 pg (27.5-34.5); MEAN CORPUSCULAR HGB CONC 33.8 g/dL (33.2-36.2); MEAN CORPUSCULAR VOLUME 92.4 fL (81-97); RED BLOOD COUNT 2.15 x10^6/uL (4.38-5.82); RED CELL DISTRIBUTION WIDTH 16.5 % (9.4-14.8)
[2017-11-08 06:46] LABS: INTERNATIONAL NORMALIZED RATIO 1.33 (0.93-1.1); PROTHROMBIN TIME 13.8 Seconds (9.6-11.5)
[2017-11-08 06:59] LABS: MEAN PLATELET VOLUME 10.2 fL (7.4-10.4)
[2017-11-08 07:00] LABS: MD YES
[2017-11-08 07:01] LABS: PLATELET COUNT 23 x10^3/uL (130-400)
[2017-11-08 07:06] LABS: <PLATELET ESTIMATE> DECREASED; <PLT MORPHOLOGY> NORMAL PLT MORPH; ANISOCYTOSIS 1+; LYMPH#(MANUAL) 0.78 x10^3/uL (1-3.4); LYMPHS% (MANUAL) 4 % (22-44); MONOS#(MANUAL) 0.78 x10^3/uL (0.3-2.7); MONOS% (MANUAL) 4 % (2-9); POLYCHROMASIA 1+; SEG#(MANUAL) 17.85 x10^3/uL (1.8-6.8); SEGS% (MANUAL) 92 % (42-75)
[2017-11-08] MEDS: INSULIN NPH HUMAN 100 UNIT/ML, 3ML VIAL SQ-INSULIN SCH ×2 (09:22→21:14)
[2017-11-08] MEDS: CALCITRIOL 0.25 MCG CAPSULE PO SCH (10:52)
[2017-11-08] MEDS: FEBUXOSTAT 40 MG TABLET PO SCH (10:52)
[2017-11-08 11:53] VITALS: BP 78/51
[2017-11-08 11:57] VITALS: BP 78/51
[2017-11-08 12:15] VITALS: BP 88/57
[2017-11-08 12:32] VITALS: BP 92/60
[2017-11-08 12:45] VITALS: BP 95/56
[2017-11-08 13:11] VITALS: BP 92/62
[2017-11-08] MEDS: AMPICILLIN/SULBACTAM 3 GM in SODIUM CHLORIDE 0.9% 100 ML IV SCH (15:32)
[2017-11-08] MEDS ORDERED: FAT EMULSIONS IV SCH (17:00)
[2017-11-08] MEDS ORDERED: DEXTROSE 70% IV SCH (17:00)
[2017-11-08] MEDS ORDERED: [UNRECOGNIZED DRUG - OTHER] IV SCH (17:00)
[2017-11-08] MEDS ORDERED: AMINO ACID 10% IV SCH (17:00)
[2017-11-09] MEDS: INSULIN LISPRO 100 UNITS/ML, PEN VERY HIGH DOSE SS SQ-INSULIN SCH ×4 (01:15→17:41)
[2017-11-09] MEDS: HYDROCORTISONE 100 MG INJ. IVPush SCH ×4 (01:16→18:24)
[2017-11-09] MEDS: ALBUTEROL/IPRATROPIUM 2.5MG/0.5MG, 3 ML INLINE SCH ×6 (02:33→23:09)
[2017-11-09 03:22] LABS: ALBUMIN 1.8 g/dL (3.4-5.0); ANION GAP 7 mmol/L (5-15); CALCIUM 7.8 mg/dL (8.5-10.1); CHLORIDE 105 mmol/L (98-107)
[2017-11-09 03:26] LABS: ALANINE AMINOTRANSFERASE 34 U/L (12-78); ALKALINE PHOSPHATASE 84 U/L (45-117); CREATININE 1.49 mg/dL (0.7-1.3); TOTAL PROTEIN 4.2 g/dL (6.4-8.2)
[2017-11-09 03:49] LABS: MEAN CORPUSCULAR HEMOGLOBIN 31.8 pg (27.5-34.5); MEAN CORPUSCULAR HGB CONC 33.7 g/dL (33.2-36.2); MEAN CORPUSCULAR VOLUME 94.3 fL (81-97); MEAN PLATELET VOLUME 11.3 fL (7.4-10.4); RED BLOOD COUNT 3.08 x10^6/uL (4.38-5.82); RED CELL DISTRIBUTION WIDTH 15.9 % (9.4-14.8)
[2017-11-09 03:52] LABS: PLATELET COUNT 25 x10^3/uL (130-400)
[2017-11-09 04:34] LABS: BASOPHILS % (AUTO) 0 % (0-1); EOSINOPHILS % (AUTO) 0 % (1-7); LYMPHOCYTES # (AUTO) 0.36 x10^3/uL (1-3.4); LYMPHOCYTES % (AUTO) 1 % (22-44); MD SCAN; MONOCYTES # (AUTO) 0.37 x10^3/uL (0.2-0.8); MONOCYTES % (AUTO) 1 % (2-9); NEUTROPHILS # (AUTO) 26.58 x10^3/uL (1.8-6.8); NEUTROPHILS % (AUTO) 97 % (42-75)
[2017-11-09] MEDS: PANTOPRAZOLE 80 MG in SODIUM CHLORIDE 0.9% 100 ML IV SCH ×2 (06:34→16:47)
[2017-11-09] MEDS ORDERED: MAGNESIUM SULFATE PMX 2GM/50ML 50 ML IVPB ONE (09:00)
[2017-11-09] MEDS ORDERED: AMIODARONE 150 MG in DEXTROSE 5% 100 ML IV ONE (09:30)
[2017-11-09] MEDS ORDERED: AMIODARONE 900 MG in DEXTROSE 5% 482 ML IV PRN (09:30)
[2017-11-09] MEDS ORDERED: FILTER 0.22 MICRON IV PRN (10:00)
[2017-11-09] MEDS: INSULIN NPH HUMAN 100 UNIT/ML, 3ML VIAL SQ-INSULIN SCH ×2 (10:02→20:37)
[2017-11-09] MEDS: AMIODARONE 900 MG in DEXTROSE 5% 482 ML IV PRN (10:03)
[2017-11-09] MEDS ORDERED: PARICALCITOL 2 MCG/ML, 1ML IVPush PRN (10:30)
[2017-11-09] MEDS: PROPOFOL 100 ML IV PRN (12:44)
[2017-11-09] MEDS: AMPICILLIN/SULBACTAM 3 GM in SODIUM CHLORIDE 0.9% 100 ML IV SCH (15:22)
[2017-11-09] MEDS ORDERED: AMINO ACID 10% IV SCH (17:00)
[2017-11-09] MEDS ORDERED: DEXTROSE 70% IV SCH (17:00)
[2017-11-09] MEDS ORDERED: FAT EMULSIONS IV SCH (17:00)
[2017-11-09] MEDS ORDERED: [UNRECOGNIZED DRUG - OTHER] IV SCH (17:00)
[2017-11-10] MEDS: INSULIN LISPRO 100 UNITS/ML, PEN VERY HIGH DOSE SS SQ-INSULIN SCH ×4 (00:19→18:00)
[2017-11-10] MEDS: HYDROCORTISONE 100 MG INJ. IVPush SCH ×4 (00:19→22:02)
[2017-11-10] MEDS: PANTOPRAZOLE 80 MG in SODIUM CHLORIDE 0.9% 100 ML IV SCH ×2 (03:13→13:58)
[2017-11-10] MEDS: ALBUTEROL/IPRATROPIUM 2.5MG/0.5MG, 3 ML INLINE SCH ×6 (03:55→23:20)
[2017-11-10 04:35] LABS: MEAN CORPUSCULAR HEMOGLOBIN 31.9 pg (27.5-34.5); MEAN CORPUSCULAR HGB CONC 33.3 g/dL (33.2-36.2); MEAN CORPUSCULAR VOLUME 95.6 fL (81-97); MEAN PLATELET VOLUME 12.1 fL (7.4-10.4); PLATELET COUNT 74 x10^3/uL (130-400); RED BLOOD COUNT 2.65 x10^6/uL (4.38-5.82)
[2017-11-10 04:47] LABS: ALANINE AMINOTRANSFERASE 28 U/L (12-78); ALBUMIN 1.7 g/dL (3.4-5.0); ANION GAP 9 mmol/L (5-15); CALCIUM 7.9 mg/dL (8.5-10.1); CHLORIDE 109 mmol/L (98-107)
[2017-11-10 04:55] LABS: ALKALINE PHOSPHATASE 99 U/L (45-117); BILIRUBIN,TOTAL 2.2 mg/dL (0.2-1.0); CREATININE 1.65 mg/dL (0.7-1.3); TOTAL PROTEIN 4.4 g/dL (6.4-8.2); TRIGLYCERIDES 112 mg/dL (50-200)
[2017-11-10 05:38] LABS: MD YES
[2017-11-10 05:39] LABS: ANISOCYTOSIS 1+; BAND#(MANUAL) 1.18 x10^3/uL; BANDS%(MANUAL) 4 % (0-7); LYMPH#(MANUAL) 0.89 x10^3/uL (1-3.4); LYMPHS% (MANUAL) 3 % (22-44); MONOS#(MANUAL) 0.59 x10^3/uL (0.3-2.7); MONOS% (MANUAL) 2 % (2-9); SEG#(MANUAL) 26.85 x10^3/uL (1.8-6.8); SEGS% (MANUAL) 91 % (42-75)
[2017-11-10 05:40] LABS: <PLATELET ESTIMATE> DECREASED; LARGE PLATELETS 1+; POLYCHROMASIA 1+
[2017-11-10] MEDS: INSULIN NPH HUMAN 100 UNIT/ML, 3ML VIAL SQ-INSULIN SCH ×2 (07:56→22:02)
[2017-11-10] MEDS: ALBUMIN HUMAN 25% 100 ML IV PRN ×3 (08:29→10:51)
[2017-11-10] MEDS ORDERED: ARANESP 100 MCG/ML **ESRD SQ SCH (09:00)
[2017-11-10] MEDS: AMIODARONE 900 MG in DEXTROSE 5% 482 ML IV PRN (09:27)
[2017-11-10 10:09] VITALS: BP 100/56
[2017-11-10] MEDS: PROPOFOL 100 ML IV PRN (10:42)
[2017-11-10] MEDS: NOREPINEPHRINE 8 MG in SODIUM CHLORIDE 0.9% 242 ML IV PRN (10:55)
[2017-11-10] MEDS ORDERED: FENTANYL PF 100 MCG/2ML ONE (12:45)
[2017-11-10] MEDS ORDERED: MIDAZOLAM 1 MG/ML, 2ML ONE ×2 (12:50)
[2017-11-10] MEDS: AMPICILLIN/SULBACTAM 3 GM in SODIUM CHLORIDE 0.9% 100 ML IV SCH (14:22)
[2017-11-10] MEDS ORDERED: DEXTROSE 70% IV SCH (17:00)
[2017-11-10] MEDS ORDERED: AMINO ACID 10% IV SCH (17:00)
[2017-11-10] MEDS ORDERED: FAT EMULSIONS IV SCH (17:00)
[2017-11-10] MEDS ORDERED: [UNRECOGNIZED DRUG - OTHER] IV SCH (17:00)
[2017-11-10 18:09] VITALS: BP 117/59
[2017-11-10] MEDS: FILTER, DISP 1.2 MICRON FOR TPN/PVN IV PRN (18:12)
[2017-11-10 18:20] VITALS: BP 108/52
[2017-11-10 18:43] VITALS: BP 113/55
[2017-11-10 23:55] VITALS: BP 128/56
[2017-11-11] MEDS: HYDROCORTISONE 100 MG INJ. IVPush SCH ×4 (00:15→20:25)
[2017-11-11 00:20] VITALS: BP 97/47
[2017-11-11 00:58] VITALS: BP 118/52
[2017-11-11] MEDS: PROPOFOL 100 ML IV PRN (01:01)
[2017-11-11] MEDS: ALBUTEROL/IPRATROPIUM 2.5MG/0.5MG, 3 ML INLINE SCH ×4 (03:00→15:30)
[2017-11-11 03:30] LABS: ALANINE AMINOTRANSFERASE 21 U/L (12-78); ALBUMIN 2.5 g/dL (3.4-5.0); ANION GAP 9 mmol/L (5-15); CHLORIDE 107 mmol/L (98-107); CREATININE 1.62 mg/dL (0.7-1.3)
[2017-11-11] MEDS: PANTOPRAZOLE 80 MG in SODIUM CHLORIDE 0.9% 100 ML IV SCH ×2 (03:31→15:42)
[2017-11-11 03:33] LABS: ALKALINE PHOSPHATASE 81 U/L (45-117); BILIRUBIN,TOTAL 2.1 mg/dL (0.2-1.0); TOTAL PROTEIN 4.6 g/dL (6.4-8.2)
[2017-11-11 03:44] LABS: MEAN CORPUSCULAR HEMOGLOBIN 30.7 pg (27.5-34.5); MEAN CORPUSCULAR HGB CONC 33.7 g/dL (33.2-36.2); MEAN CORPUSCULAR VOLUME 91.3 fL (81-97); MEAN PLATELET VOLUME 10.9 fL (7.4-10.4); PLATELET COUNT 68 x10^3/uL (130-400); RED BLOOD COUNT 3.31 x10^6/uL (4.38-5.82); RED CELL DISTRIBUTION WIDTH 15.6 % (9.4-14.8)
[2017-11-11 04:28] LABS: BASOPHILS % (AUTO) 0 % (0-1); EOSINOPHILS # (AUTO) 0.01 x10^3/uL (0-0.4); EOSINOPHILS % (AUTO) 0 % (1-7); LYMPHOCYTES # (AUTO) 0.46 x10^3/uL (1-3.4); LYMPHOCYTES % (AUTO) 2 % (22-44); MD SCAN; MONOCYTES # (AUTO) 0.46 x10^3/uL (0.2-0.8); MONOCYTES % (AUTO) 2 % (2-9); NEUTROPHILS # (AUTO) 23.38 x10^3/uL (1.8-6.8); NEUTROPHILS % (AUTO) 96 % (42-75)
[2017-11-11] MEDS: INSULIN LISPRO 100 UNITS/ML, PEN VERY HIGH DOSE SS SQ-INSULIN SCH ×4 (05:35→18:41)
[2017-11-11] MEDS: INSULIN NPH HUMAN 100 UNIT/ML, 3ML VIAL SQ-INSULIN SCH (09:00)
[2017-11-11 10:00] VITALS: BP 120/65
[2017-11-11] MEDS: AMPICILLIN/SULBACTAM 3 GM in SODIUM CHLORIDE 0.9% 100 ML IV SCH (15:43)
[2017-11-11] MEDS ORDERED: DEXTROSE 70% IV SCH (17:00)
[2017-11-11] MEDS ORDERED: FAT EMULSIONS IV SCH (17:00)
[2017-11-11] MEDS ORDERED: [UNRECOGNIZED DRUG - OTHER] IV SCH (17:00)
[2017-11-11] MEDS ORDERED: AMINO ACID 10% IV SCH (17:00)
[2017-11-11] MEDS: AMIODARONE 900 MG in DEXTROSE 5% 482 ML IV PRN (18:35)
[2017-11-11] MEDS: FILTER, DISP 1.2 MICRON FOR TPN/PVN IV PRN (18:35)
[2017-11-12] MEDS: PANTOPRAZOLE 80 MG in SODIUM CHLORIDE 0.9% 100 ML IV SCH ×3 (02:12→23:04)
[2017-11-12] MEDS: HYDROCORTISONE 100 MG INJ. IVPush SCH ×3 (02:19→23:04)
[2017-11-12 04:55] LABS: MEAN CORPUSCULAR HEMOGLOBIN 31.4 pg (27.5-34.5); MEAN CORPUSCULAR HGB CONC 34.1 g/dL (33.2-36.2); MEAN CORPUSCULAR VOLUME 92.1 fL (81-97); MEAN PLATELET VOLUME 10.5 fL (7.4-10.4); PLATELET COUNT 112 x10^3/uL (130-400); RED BLOOD COUNT 3.38 x10^6/uL (4.38-5.82); RED CELL DISTRIBUTION WIDTH 16.5 % (9.4-14.8)
[2017-11-12 04:58] LABS: ANION GAP 10 mmol/L (5-15); CALCIUM 7.9 mg/dL (8.5-10.1); CHLORIDE 105 mmol/L (98-107); CREATININE 1.58 mg/dL (0.7-1.3)
[2017-11-12 05:19] LABS: BASOPHILS % (AUTO) 0 % (0-1); EOSINOPHILS % (AUTO) 0 % (1-7); LYMPHOCYTES # (AUTO) 0.29 x10^3/uL (1-3.4); LYMPHOCYTES % (AUTO) 1 % (22-44); MD SCAN; MONOCYTES # (AUTO) 0.73 x10^3/uL (0.2-0.8); MONOCYTES % (AUTO) 3 % (2-9); NEUTROPHILS # (AUTO) 21.59 x10^3/uL (1.8-6.8); NEUTROPHILS % (AUTO) 96 % (42-75)
[2017-11-12] MEDS: INSULIN LISPRO 100 UNITS/ML, PEN VERY HIGH DOSE SS SQ-INSULIN SCH ×4 (06:00→20:00)
[2017-11-12 09:00] VITALS: BP 132/68
[2017-11-12] MEDS: ALBUMIN HUMAN 25% 100 ML IV PRN (10:03)
[2017-11-12] MEDS ORDERED: ALBUTEROL/IPRATROPIUM 2.5MG/0.5MG, 3 ML ONE (11:17)
[2017-11-12] MEDS ORDERED: ALBUTEROL/IPRATROPIUM 2.5MG/0.5MG, 3 ML NPPB PRN (12:00)
[2017-11-12] MEDS ORDERED: HYDROCORTISONE 100 MG INJ. ONE (12:03)
[2017-11-12] MEDS: ACETYLCYSTEINE 20%, 4ML NPPB SCH ×2 (13:45→19:59)
[2017-11-12] MEDS: ALBUTEROL/IPRATROPIUM 2.5MG/0.5MG, 3 ML NPPB SCH ×2 (13:45→19:59)
[2017-11-12] MEDS ORDERED: [UNRECOGNIZED DRUG - OTHER] IV SCH (17:00)
[2017-11-12] MEDS ORDERED: DEXTROSE 70% IV SCH (17:00)
[2017-11-12] MEDS ORDERED: FILTER, DISP 1.2 MICRON FOR TPN/PVN IV PRN (17:00)
[2017-11-12] MEDS ORDERED: AMINO ACID 10% IV SCH (17:00)
[2017-11-12] MEDS ORDERED: FAT EMULSIONS IV SCH (17:00)
[2017-11-12 20:18] LABS: HEMOGRAM NOTE RECHECKED
[2017-11-12 20:54] LABS: ANION GAP 11 mmol/L (5-15); CALCIUM 7.6 mg/dL (8.5-10.1); CHLORIDE 105 mmol/L (98-107); CREATININE 2.03 mg/dL (0.7-1.3)
[2017-11-13] VITALS (20 sets, daily range): BP systolic 63–139; BP diastolic 40–99
[2017-11-13] MEDS: INSULIN LISPRO 100 UNITS/ML, PEN VERY HIGH DOSE SS SQ-INSULIN SCH ×4 (00:33→20:00)
[2017-11-13] MEDS: AMIODARONE 900 MG in DEXTROSE 5% 482 ML IV PRN (00:45)
[2017-11-13] MEDS: PHENYLEPHRINE 80 MG in SODIUM CHLORIDE 0.9% 242 ML IV PRN ×2 (04:30→22:09)
[2017-11-13] MEDS: VASOPRESSIN 100 UNIT in SODIUM CHLORIDE 0.9% 495 ML IV PRN (04:30)
[2017-11-13 04:39] LABS: MEAN CORPUSCULAR HEMOGLOBIN 30.9 pg (27.5-34.5); MEAN CORPUSCULAR HGB CONC 32.7 g/dL (33.2-36.2); MEAN CORPUSCULAR VOLUME 94.6 fL (81-97); MEAN PLATELET VOLUME 9.9 fL (7.4-10.4); PLATELET COUNT 101 x10^3/uL (130-400); RED BLOOD COUNT 1.85 x10^6/uL (4.38-5.82); RED CELL DISTRIBUTION WIDTH 19.7 % (9.4-14.8)
[2017-11-13 04:55] LABS: CALCIUM 7.1 mg/dL (8.5-10.1); CHLORIDE 106 mmol/L (98-107)
[2017-11-13 04:58] LABS: ANION GAP 11 mmol/L (5-15); CREATININE 2.21 mg/dL (0.7-1.3); TRIGLYCERIDES 69 mg/dL (50-200)
[2017-11-13 05:01] LABS: BASOPHILS # (AUTO) 0.06 x10^3/uL (0-0.1); BASOPHILS % (AUTO) 0 % (0-1); EOSINOPHILS % (AUTO) 0 % (1-7); LYMPHOCYTES # (AUTO) 0.93 x10^3/uL (1-3.4); LYMPHOCYTES % (AUTO) 6 % (22-44); MD SCAN; MONOCYTES % (AUTO) 9 % (2-9); NEUTROPHILS # (AUTO) 12.95 x10^3/uL (1.8-6.8); NEUTROPHILS % (AUTO) 85 % (42-75)
[2017-11-13] MEDS: NOREPINEPHRINE 8 MG in SODIUM CHLORIDE 0.9% 242 ML IV PRN ×2 (06:15→23:31)
[2017-11-13] MEDS: ACETYLCYSTEINE 20%, 4ML NPPB SCH ×2 (07:00→09:30)
[2017-11-13] MEDS: ALBUTEROL/IPRATROPIUM 2.5MG/0.5MG, 3 ML NPPB SCH (07:00)
[2017-11-13] MEDS: HYDROCORTISONE 100 MG INJ. IVPush SCH ×3 (07:57→23:54)
[2017-11-13] MEDS: PANTOPRAZOLE 80 MG in SODIUM CHLORIDE 0.9% 100 ML IV SCH ×2 (09:15→19:38)
[2017-11-13] MEDS ORDERED: SODIUM CHLORIDE 0.9%, 500ML IVBOLUS ONE (09:30)
[2017-11-13] MEDS ORDERED: VECURONIUM 10 MG IVPush ONE (09:30)
[2017-11-13] MEDS ORDERED: MIDAZOLAM 1 MG/ML, 2ML IVPush ONE ×2 (09:30)
[2017-11-13] MEDS ORDERED: PANTOPRAZOLE 80 MG in SODIUM CHLORIDE 0.9% 100 ML IV SCH (09:56)
[2017-11-13] MEDS ORDERED: LIDOCAINE-MPF 1%, 2ML ENDO PRN (10:00)
[2017-11-13] MEDS: ALBUTEROL/IPRATROPIUM 2.5MG/0.5MG, 3 ML INLINE SCH ×4 (10:00→22:20)
[2017-11-13] MEDS ORDERED: PANTOPRAZOLE 40 MG IV IVPush ONE (10:00)
[2017-11-13] MEDS ORDERED: SENNOSIDES 8.8 MG/5 ML ORAL SOL NG PRN (10:00)
[2017-11-13] MEDS ORDERED: FENTANYL PF 100 MCG/2ML IVPush PRN (10:00)
[2017-11-13] MEDS ORDERED: SODIUM CHLORIDE 0.9%, 500ML IV ONE (10:00)
[2017-11-13] MEDS ORDERED: BISACODYL 10 MG SUPP PR PRN (10:00)
[2017-11-13] MEDS ORDERED: LACTULOSE 20 GM/30 ML UDC NG PRN (10:00)
[2017-11-13] MEDS ORDERED: MIDAZOLAM 1 MG/ML, 2ML IVPush PRN (10:00)
[2017-11-13] MEDS ORDERED: PHARMACY MAY ADJ FOR RENAL FX MC SCH (10:00)
[2017-11-13] MEDS ORDERED: SENNA/DOCUSATE TABLET NG PRN (10:00)
[2017-11-13] MEDS ORDERED: PANTOPRAZOLE 80 MG in SODIUM CHLORIDE 0.9% 50 ML IV ONE (10:30)
[2017-11-13] MEDS ORDERED: MIDAZOLAM 1 MG/ML, 2ML ONE ×2 (11:54)
[2017-11-13] MEDS ORDERED: FLUMAZENIL 0.1 MG/1 ML, 5ML ONE (11:55)
[2017-11-13 16:40] LABS: ALANINE AMINOTRANSFERASE 46 U/L (12-78); ALBUMIN 1.4 g/dL (3.4-5.0); ANION GAP 12 mmol/L (5-15); CALCIUM 6.6 mg/dL (8.5-10.1); CHLORIDE 110 mmol/L (98-107); CREATININE 2.33 mg/dL (0.7-1.3)
[2017-11-13 16:42] LABS: ALKALINE PHOSPHATASE 58 U/L (45-117); BILIRUBIN,TOTAL 2.2 mg/dL (0.2-1.0)
[2017-11-13] MEDS ORDERED: DEXTROSE 70% IV SCH (17:00)
[2017-11-13] MEDS ORDERED: MAGNESIUM SULFATE 1 GM in SODIUM CHLORIDE 0.9% 50 ML IV ONE (17:00)
[2017-11-13] MEDS ORDERED: OCULAR LUBRICANT OPHTH OINT 3.5 GM EACHEYE PRN (17:00)
[2017-11-13] MEDS ORDERED: FAT EMULSIONS IV SCH (17:00)
[2017-11-13] MEDS ORDERED: [UNRECOGNIZED DRUG - OTHER] IV SCH (17:00)
[2017-11-13] MEDS ORDERED: AMINO ACID 10% IV SCH (17:00)
[2017-11-13] MEDS ORDERED: SODIUM BICARB 8.4%, 50ML SYRINGE ONE (17:49)
[2017-11-13] MEDS ORDERED: SODIUM BICARB 8.4%, 50ML SYRINGE IVPush ONE (18:00)
[2017-11-13] MEDS ORDERED: SODIUM BICARBONATE 1 MEQ/ML, 50ML VIAL IVPush ONE (20:00)
[2017-11-14] VITALS (10 sets, daily range): BP systolic 68–90; BP diastolic 40–67
[2017-11-14] MEDS ORDERED: SODIUM BICARBONATE 8.4% 100 MEQ in DEXTROSE 5% 1,000 ML IV SCH (01:00)
[2017-11-14] MEDS: ALBUTEROL/IPRATROPIUM 2.5MG/0.5MG, 3 ML INLINE SCH ×2 (02:41→06:31)
[2017-11-14] MEDS: INSULIN LISPRO 100 UNITS/ML, PEN VERY HIGH DOSE SS SQ-INSULIN SCH ×2 (03:42→07:45)
[2017-11-14 04:05] LABS: ANION GAP 14 mmol/L (5-15); CALCIUM 6.1 mg/dL (8.5-10.1); CHLORIDE 108 mmol/L (98-107)
[2017-11-14 04:10] LABS: ALANINE AMINOTRANSFERASE 88 U/L (12-78); ALKALINE PHOSPHATASE 39 U/L (45-117); BILIRUBIN,TOTAL 1.5 mg/dL (0.2-1.0); CREATININE 2.59 mg/dL (0.7-1.3); TOTAL PROTEIN 2.2 g/dL (6.4-8.2)
[2017-11-14] MEDS: NOREPINEPHRINE 8 MG in SODIUM CHLORIDE 0.9% 242 ML IV PRN ×2 (04:39→09:38)
[2017-11-14] MEDS ORDERED: SODIUM BICARBONATE 8.4% 150 MEQ in DEXTROSE 5% 1,000 ML IV SCH (05:00)
[2017-11-14 05:07] LABS: MEAN CORPUSCULAR HEMOGLOBIN 31.5 pg (27.5-34.5); MEAN CORPUSCULAR HGB CONC 34.1 g/dL (33.2-36.2); MEAN CORPUSCULAR VOLUME 92.2 fL (81-97); MEAN PLATELET VOLUME 11.6 fL (7.4-10.4); PLATELET COUNT 50 x10^3/uL (130-400); RED BLOOD COUNT 2.45 x10^6/uL (4.38-5.82); RED CELL DISTRIBUTION WIDTH 14.2 % (9.4-14.8)
[2017-11-14] MEDS: PANTOPRAZOLE 80 MG in SODIUM CHLORIDE 0.9% 100 ML IV SCH (05:32)
[2017-11-14 05:36] LABS: MD YES
[2017-11-14 05:38] LABS: BAND#(MANUAL) 2.28 x10^3/uL; BANDS%(MANUAL) 13 % (0-7); LYMPH#(MANUAL) 1.58 x10^3/uL (1-3.4); LYMPHS% (MANUAL) 9 % (22-44); METAMYELOCYTES# (MANUAL) 0.18 x10^3/uL (0-0); METAMYELOCYTES% (MANUAL) 1 % (0-1); MONOS#(MANUAL) 0.53 x10^3/uL (0.3-2.7); MONOS% (MANUAL) 3 % (2-9); NRBC % (MANUAL) 1 % (0-1); SEG#(MANUAL) 12.95 x10^3/uL (1.8-6.8); SEGS% (MANUAL) 74 % (42-75)
[2017-11-14 05:39] LABS: <PLATELET ESTIMATE> DECREASED; ANISOCYTOSIS 1+; LARGE PLATELETS 1+; POLYCHROMASIA 1+
[2017-11-14] MEDS: HYDROCORTISONE 100 MG INJ. IVPush SCH (07:45)
[2017-11-14] MEDS: AMIODARONE 900 MG in DEXTROSE 5% 482 ML IV PRN (07:58)
[2017-11-14] MEDS ORDERED: EPINEPHRINE 4 MG in SODIUM CHLORIDE 0.9% 246 ML IV PRN (08:30)
[2017-11-14 08:36] LABS: INTERNATIONAL NORMALIZED RATIO 2.17 (0.93-1.1)
[2017-11-14] MEDS ORDERED: FAT EMULSIONS IV SCH ×2 (09:00→17:00)
[2017-11-14] MEDS ORDERED: AMINO ACID 10% IV SCH ×2 (09:00→17:00)
[2017-11-14] MEDS ORDERED: DEXTROSE 70% IV SCH ×2 (09:00→17:00)
[2017-11-14] MEDS ORDERED: [UNRECOGNIZED DRUG - OTHER] IV SCH ×2 (09:00→17:00)
[2017-11-14] MEDS: PHENYLEPHRINE 80 MG in SODIUM CHLORIDE 0.9% 242 ML IV PRN (09:14)
[2017-11-14] MEDS ORDERED: LORazepam 2 MG/ML, 1ML ONE (10:42)
[2017-11-14] MEDS: morphine SULFATE 10 MG/ML, 1ML IVPush PRN (10:55)
[2017-11-14] MEDS ORDERED: morphine SULFATE 10 MG/ML, 1ML IV ONE (11:30)
[2017-11-14] MEDS ORDERED: LORazepam 2 MG/ML, 1ML IV PRN (11:30)
[2017-11-14] MEDS ORDERED: morphine SULFATE 10 MG/ML, 1ML IV PRN (11:30)
[2017-11-14] MEDS ORDERED: ATROPINE OPHTH SOLN 1%, 2ML PO PRN (11:30)
[2017-11-14] MEDS ORDERED: LORazepam 2 MG/ML, 1ML IV ONE (11:30)
[2018-11-07] MEDS ORDERED: MIDAZOLAM 1 MG/ML, 2ML ONE (05:58)
[2018-11-07] MEDS ORDERED: PROPOFOL 10 MG/ML, 20ML ONE (05:58)
[2018-11-07] MEDS ORDERED: ETOMIDATE 40 MG/20 ML ONE (05:58)
== END 2017-11-14 16:15 | disposition expired | DRG 853 ==
LOC: ED 03:20 → EDIP 05:36 → 4WST 06:37 → 4EST 10-27 03:36 → CCU 10-30 09:12
PROVIDERS: ADMIT Internal Medicine; ATTEND Internal Medicine
PROC: 0T9B70Z Drainage of Bladder with Drainage Device, Via Natural or Artificial Opening (ICD-10-PCS; principal; 2017-10-26)
PROC: 0W9B3ZZ Drainage of Left Pleural Cavity, Percutaneous Approach (ICD-10-PCS; 2017-10-26)
PROC: 5A12012 Performance of Cardiac Output, Single, Manual (ICD-10-PCS; 2017-10-26)
PROC: 5A1955Z Respiratory Ventilation, Greater than 96 Consecutive Hours (ICD-10-PCS; 2017-10-26)
PROC: 0BH17EZ Insertion of Endotracheal Airway into Trachea, Via Natural or Artificial Opening (ICD-10-PCS; 2017-10-26)
PROC: 05HY33Z Insertion of Infusion Device into Upper Vein, Percutaneous Approach (ICD-10-PCS; 2017-10-30)
PROC: 05HY33Z Insertion of Infusion Device into Upper Vein, Percutaneous Approach (ICD-10-PCS; 2017-10-30)
PROC: B548ZZA Ultrasonography of Superior Vena Cava, Guidance (ICD-10-PCS; 2017-10-30)
PROC: 02HV33Z Insertion of Infusion Device into Superior Vena Cava, Percutaneous Approach (ICD-10-PCS; 2017-10-31)
PROC: 30233L1 Transfusion of Nonautologous Fresh Plasma into Peripheral Vein, Percutaneous Approach (ICD-10-PCS; 2017-11-03)
PROC: 30233N1 Transfusion of Nonautologous Red Blood Cells into Peripheral Vein, Percutaneous Approach (ICD-10-PCS; 2017-11-03)
PROC: 30233R1 Transfusion of Nonautologous Platelets into Peripheral Vein, Percutaneous Approach (ICD-10-PCS; 2017-11-03)
PROC: 30233K1 Transfusion of Nonautologous Frozen Plasma into Peripheral Vein, Percutaneous Approach (ICD-10-PCS; 2017-11-03)
PROC: 0B9J8ZX Drainage of Left Lower Lung Lobe, Via Natural or Artificial Opening Endoscopic, Diagnostic (ICD-10-PCS; 2017-11-04)
PROC: 0B9G8ZX Drainage of Left Upper Lung Lobe, Via Natural or Artificial Opening Endoscopic, Diagnostic (ICD-10-PCS; 2017-11-04)
PROC: 0B9H8ZX Drainage of Lung Lingula, Via Natural or Artificial Opening Endoscopic, Diagnostic (ICD-10-PCS; 2017-11-04)
PROC: 0W3P8ZZ Control Bleeding in Gastrointestinal Tract, Via Natural or Artificial Opening Endoscopic (ICD-10-PCS; 2017-11-10)
PROC: 0W3P8ZZ Control Bleeding in Gastrointestinal Tract, Via Natural or Artificial Opening Endoscopic (ICD-10-PCS; 2017-11-10)
PROC: 0DJD8ZZ Inspection of Lower Intestinal Tract, Via Natural or Artificial Opening Endoscopic (ICD-10-PCS; 2017-11-10)
PROC: 04V23DZ Restriction of Gastric Artery with Intraluminal Device, Percutaneous Approach (ICD-10-PCS; 2017-11-13)
PROC: 0B9J8ZX Drainage of Left Lower Lung Lobe, Via Natural or Artificial Opening Endoscopic, Diagnostic (ICD-10-PCS; 2017-11-13)
PROC: 0B9G8ZX Drainage of Left Upper Lung Lobe, Via Natural or Artificial Opening Endoscopic, Diagnostic (ICD-10-PCS; 2017-11-13)
DX: A41.9 Sepsis, unspecified organism (principal); E43 Unspecified severe protein-calorie malnutrition; I21.A1 Myocardial infarction type 2; J96.21 Acute and chronic respiratory failure with hypoxia; N17.0 Acute kidney failure with tubular necrosis; R57.0 Cardiogenic shock; J18.9 Pneumonia, unspecified organism; G93.40 Encephalopathy, unspecified; I50.43 Acute on chronic combined systolic (congestive) and diastolic (congestive) heart failure; K26.4 Chronic or unspecified duodenal ulcer with hemorrhage; N18.6 End stage renal disease; D62 Acute posthemorrhagic anemia; I31.3 Pericardial effusion (noninflammatory); I47.1 Supraventricular tachycardia; J98.11 Atelectasis; Q27.30 Arteriovenous malformation, site unspecified; Z99.11 Dependence on respirator [ventilator] status; E11.21 Type 2 diabetes mellitus with diabetic nephropathy; D69.6 Thrombocytopenia, unspecified; E11.42 Type 2 diabetes mellitus with diabetic polyneuropathy; E11.22 Type 2 diabetes mellitus with diabetic chronic kidney disease; D63.8 Anemia in other chronic diseases classified elsewhere; E11.65 Type 2 diabetes mellitus with hyperglycemia; Z68.30 Body mass index [BMI] 30.0-30.9, adult; Z88.8 Allergy status to other drugs, medicaments and biological substances; E66.9 Obesity, unspecified; E78.5 Hyperlipidemia, unspecified; E86.1 Hypovolemia; E87.5 Hyperkalemia; I12.9 Hypertensive chronic kidney disease with stage 1 through stage 4 chronic kidney disease, or unspecified chronic kidney disease; I25.10 Atherosclerotic heart disease of native coronary artery without angina pectoris; I25.5 Ischemic cardiomyopathy; I35.8 Other nonrheumatic aortic valve disorders; I48.91 Unspecified atrial fibrillation; K25.9 Gastric ulcer, unspecified as acute or chronic, without hemorrhage or perforation; M10.9 Gout, unspecified; N25.0 Renal osteodystrophy; Z78.1 Physical restraint status; Z79.4 Long term (current) use of insulin; Z87.01 Personal history of pneumonia (recurrent); Z87.891 Personal history of nicotine dependence; Z95.5 Presence of coronary angioplasty implant and graft; Z95.810 Presence of automatic (implantable) cardiac defibrillator; Z99.2 Dependence on renal dialysis; Z99.81 Dependence on supplemental oxygen
CPT/HCPCS: 31622; 31624; 32555; 36415; 36569; 36600; 37244; 71045; 71250; 74018; 74174; 76937; 77001; 80048; 80053; 80069; 80202; 81001; 82140; 82150; 82306; 82310; 82330; 82533; 82728; 82803; 82945; 82962; 83036; 83540; 83550; 83605; 83615; 83690; 83735; 83880; 83970; 84100; 84132; 84134; 84145; 84155; 84157; 84439; 84443; 84478; 84484; 84550; 85014; 85018; 85025; 85610; 85730; 86704; 86706; 86850; 86900; 86923; 87040; 87070; 87081; 87205; 87340; 87400; 88112; 89051; 92950; 93005; 93308; 93321; 93325; 93970; 94002; 94003; 94640; 94660; 94667; 94668; 96361; 96374; 99152; 99153; J0295; J0610; J0882; J1815; J2250; J2405; J2543; J2704; J3010; J3370; J3475; J3490; J7070; J7608; J7620; P9047; Q9967; C1751; C1769; C1887; C1894; C9113; J0171; J0282; J0330; J1642; J1720; J1940; J2270; J2370; J3420; J7030; J7040; J7050; J7060; P9016; P9017; P9035